=== PATIENT | female | born 1975 | race Caucasian/White ===

== ENCOUNTER 2023-12-10 16:45 | Outpatient (CLI) | payer BC, SELFPAY ==
[2023-12-10 16:41] LABS: Basophils # 0.1 K/mm3 (0-0.2); Basophils % 1.4 % (0.1-2.0); Eosinophils # 0.2 K/mm3 (0.0-0.4); Eosinophils % 2.5 % (0.1-12.0); Hematocrit 46.5 % (37.0-47.0); Hemoglobin 14.9 g/dL (12.2-16.2); Lymphocytes # 2.9 K/mm3 (0.7-4.5); Lymphocytes % 43.9 % (10-50); Mean Corpuscular Volume 99.8 fl (81-99); Monocytes # 0.3 K/mm3 (0.1-1.0); Monocytes % 5.2 % (1.7-9.3); Neutrophils # 3.1 K/mm3 (1.8-7.8); Neutrophils % 47.1 % (37.0-80.0); Platelet Count 298 K/mm3 (142-424); Red Blood Count 4.66 M/mm3 (4.20-5.40); Red Cell Distribution Width 13.7 % (11.5-17.5); White Blood Count 6.5 K/mm3 (4.8-10.8)
[2023-12-10 17:16] LABS: Alanine Aminotransferase 16 U/L (12-78); Albumin Level 4.7 g/dl (3.5-5.0); Albumin/Globulin Ratio 1.7 (1.1-1.8); Alkaline Phosphatase 78 U/L (38-126); Anion Gap 14.1 mEq/L (5-15); Aspartate Amino Transferase 23 U/L (14-36); Bilirubin,Total 0.4 mg/dl (0.2-1.3); Blood Urea Nitrogen 16 mg/dl (7-17); Calcium 9.6 mg/dl (8.4-10.2); Carbon Dioxide 27 mmol/L (22.0-30.0); Chloride 104 mmol/L (98-107); Estimated Glomerular Filt Rate 76 ml/min (>60); GFR (African American) 92 ML/MIN (>60); Globulin 2.7 g/dL (1.3-3.2); Glucose 100 mg/dl (74-100); Potassium 4.1 mmoL/L (3.5-5.1); Sodium 141 mmol/L (136-145); Total Protein,Serum 7.4 g/dl (6.3-8.2)
[2023-12-10 17:22] LABS: C-Reactive Protein 0.5 mg/L (0-4)
[2023-12-10 18:17] LABS: Thyroid Stimulating Hormone 0.73 uIU/mL (0.465-4.68)
[2023-12-10 18:32] LABS: Erythrocyte Sedimentation Rate 3 mm/hr (0-20)
== END 2023-12-10 23:59 | disposition home or self-care (01) ==
LOC: LAB.DROPOF 16:46
PROVIDERS: PCP Family Medicine; Visit Provider Family Medicine
DX: R10.9 Unspecified abdominal pain (principal); L29.9 Pruritus, unspecified
CPT/HCPCS: 80050; 80053; 84443; 85025; 85651; 86140

== ENCOUNTER 2023-12-30 07:57 | Outpatient (CLI) | payer BC, SELFPAY ==
--- NOTE | 2023-12-30 07:58 | US_ITS ---
FINAL REPORT TECHNIQUE: Sonographic images of the abdomen were obtained in all four quadrants. CLINICAL HISTORY: abdominal pain COMPARISON: None FINDINGS: LIVER: Homogeneous. No focal hepatic lesion or intrahepatic biliary dilatation. GALLBLADDER: Prior cholecystectomy. The common duct measures 2 mm. This is within normal limits for age. PANCREAS: Unremarkable. RIGHT KIDNEY: 10.1 cm. No hydronephrosis, mass or stone. LEFT KIDNEY: 10.5 cm. No hydronephrosis, mass or stone. SPLEEN: 7.9 cm. No focal splenic lesion. AORTA/IVC: No abdominal aortic aneurysm. Visualized IVC within normal limits. OTHER: No ascites. IMPRESSION: Unremarkable ultrasound of the abdomen. Reviewed, Interpreted and Dictated by Petty Crawford MD Transcribed by Sammie Nunes Authenticated and [facility]
== END 2023-12-30 23:59 | disposition home or self-care (01) ==
LOC: RAD 07:58
PROVIDERS: PCP Family Medicine; Visit Provider Family Medicine
DX: R10.9 Unspecified abdominal pain (principal)
CPT/HCPCS: 76700

== ENCOUNTER 2024-02-27 10:09 | Outpatient (CLI) | payer BC, SELFPAY ==
--- NOTE | 2024-02-27 10:16 | XR_ITS ---
FINAL REPORT CLINICAL HISTORY: cough FINDINGS: Two views of the chest were obtained. The heart size and pulmonary vascularity are within normal limits. The mediastinum is normal. No acute pulmonary abnormality is identified. There is no pneumothorax. The bony thorax is intact. IMPRESSION: No active cardiopulmonary disease. Reviewed, Interpreted and Dictated by Per Aviles III, MD Transcribed by Carol Melo Authenticated and [facility]
== END 2024-02-27 23:59 | disposition home or self-care (01) ==
LOC: RAD 10:10
PROVIDERS: PCP Family Medicine; Visit Provider Family Medicine
DX: U07.1 COVID-19 (principal)
CPT/HCPCS: 71046

== ENCOUNTER 2024-08-16 11:10 | Outpatient (CLI) | payer BC, SELFPAY ==
[2024-08-16 19:50] LABS: Basophils # 0.1 K/mm3 (0-0.2); Basophils % 1.1 % (0.1-2.0); Eosinophils # 0.1 K/mm3 (0.0-0.4); Eosinophils % 1.7 % (0.1-12.0); Hematocrit 45.3 % (37.0-47.0); Hemoglobin 14.7 g/dL (12.2-16.2); Lymphocytes # 2.2 K/mm3 (0.7-4.5); Lymphocytes % 34.1 % (10-50); Mean Corpuscular HGB Conc 32.5 g/dL (31.8-35.4); Mean Corpuscular Hemoglobin 31.6 pg (27.0-31.2); Mean Corpuscular Volume 97.4 fl (81-99); Mean Platelet Volume 10.5 fl (7.4-10.4); Monocytes # 0.4 K/mm3 (0.1-1.0); Monocytes % 6.7 % (1.7-9.3); Neutrophils # 3.6 K/mm3 (1.8-7.8); Neutrophils % 56.2 % (37.0-80.0); Platelet Count 312 K/mm3 (142-424); Red Blood Count 4.65 M/mm3 (4.20-5.40); Red Cell Distribution Width 13.1 % (11.5-17.5); White Blood Count 6.5 K/mm3 (4.8-10.8)
[2024-08-16 21:39] LABS: Alanine Aminotransferase 17 U/L (12-78); Albumin Level 4.9 g/dl (3.5-5.0); Albumin/Globulin Ratio 2.2 (1.1-1.8); Alkaline Phosphatase 79 U/L (38-126); Anion Gap 14.6 mEq/L (5-15); Aspartate Amino Transferase 23 U/L (14-36); Bilirubin,Total 0.3 mg/dl (0.2-1.3); Blood Urea Nitrogen 17 mg/dl (7-17); Calcium 9.6 mg/dl (8.4-10.2); Carbon Dioxide 22 mmol/L (22.0-30.0); Chloride 107 mmol/L (98-107); Estimated Glomerular Filt Rate 106 ml/min (>60); GFR (African American) 128 ML/MIN (>60); Globulin 2.2 g/dL (1.3-3.2); Glucose 88 mg/dl (74-100); Potassium 4.6 mmoL/L (3.5-5.1); Sodium 139 mmol/L (136-145); Total Protein,Serum 7.1 g/dl (6.3-8.2)
[2024-08-16 21:59] LABS: Free Thyroxine Index 2.1 ug/dL (5.93-13.13); T4 (Thyroxine) 7.4 ug/dl (5.53-11.0); Triiodothryronine (T3) Uptake 29 % (23.5-40.5)
[2024-08-16 22:13] LABS: Thyroid Stimulating Hormone 0.61 uIU/mL (0.465-4.68); Thyroid Stimulating Hormone 0.68 uIU/mL (0.465-4.68)
[2024-08-16 22:19] LABS: HIV Combo NEGATIVE (Negative)
[2024-08-16 22:26] LABS: Hepatitis C Ab Qual. W/ RFX REACTIVE (Negative)
== END 2024-08-16 23:59 | disposition home or self-care (01) ==
LOC: LAB.DROPOF 08-18 15:56
PROVIDERS: PCP Nurse Practitioner Family; Visit Provider Nurse Practitioner Family
DX: J31.2 Chronic pharyngitis (principal); R53.83 Other fatigue; N93.9 Abnormal uterine and vaginal bleeding, unspecified; Z11.59 Encounter for screening for other viral diseases; Z11.4 Encounter for screening for human immunodeficiency virus [HIV]
CPT/HCPCS: 80053; 84436; 84443; 84479; 85025; 86803; 87389; 87522

== ENCOUNTER 2024-09-26 09:04 | Emergency (ER) | payer BC, SELFPAY ==
[2024-09-26 09:09] VITALS: BP 117/63; PULSE 80; O2SAT 98
[2024-09-26 09:11] VITALS: BP 117/63; PULSE 68; RESP 17; TEMP 36.6; O2SAT 99; BMI 18.9
[2024-09-26 09:15] VITALS: BP 108/53; PULSE 68; O2SAT 97
--- NOTE | 2024-09-26 09:21 | PC.NURSE ---
dr maria at bedside
--- NOTE | 2024-09-26 09:29 | CT_ITS ---
PROCEDURE INFORMATION: Exam: CT Pelvis Without Contrast, Skeleton Exam date and time: 09/26/2024 9:36 AM Age: 49 years old Clinical indication: Pelvic pain; Additional info: Point tenderness over sacrum/coccyx x 1 yr, no known trauma TECHNIQUE: Imaging protocol: Computed tomography of the pelvis without contrast. Exam focused on the skeleton. Radiation optimization: All CT scans at this facility use at least one of these dose optimization techniques: automated exposure control; mA and/or kV adjustment per patient size (includes targeted exams where dose is matched to clinical indication); or iterative reconstruction. COMPARISON: US ABDOMEN COMPLETE 12/30/2023 8:10 AM FINDINGS: Gallbladder and biliary ducts: Status post cholecystectomy. Intestine: Mild fibrofatty appearance of the sigmoid colon and rectum suggestive of prior inflammation. Appendix: Normal appendix. Urinary bladder: Decompressed bladder with mild wall thickening. Bones/joints: The distal S5 vertebra has a curved morphology which may represent normal patient's baseline, versus posttraumatic (image 87 series 1002). No displaced fracture is identified. Recommend MRI to assess for marrow edema or overlying soft tissue inflammatory change. Moderate inflammatory change in the lower lumbar spine posterior disc bulge at L4-L5. Soft tissues: No soft tissue abnormality. IMPRESSION: The distal S5 vertebra has a curved morphology which may represent normal patient's baseline, versus posttraumatic. No displaced fracture is identified. Recommend MRI to assess for marrow edema or subtle overlying soft tissue inflammatory change.
--- NOTE | 2024-09-26 09:30 | HMH.EDGENADL ---
Discharge Plan Disposition Patient Disposition: Home, Self-Care Prescriptions Prescriptions: No Action progesterone micronized 200 mg capsule 200 mg PO HS Patient Comments: TAKE 1 CAPSULE BY MOUTH NIGHTLY fluticasone propionate [Flonase Allergy Relief] 50 mcg/actuation spray,suspension 1 spray intranasal Q12H Rx Instructions: administer into each nostril All Day Allergy (cetirizine) 10 mg capsule 10 mg PO DAILY PRN (Reason: Allergy Symptoms) famotidine 20 mg tablet 20 mg PO DAILY Qty: 30 2RF estradiol [Arabella] 0.05 mg/24 hr patch semiweekly See Rx Instructions .ROUTE .COMPLEX Patient Comments: APPLY 1 PATCH TOPICALLY TWICE A WEEK Rx Instructions: APPLY 1 PATCH TOPICALLY TWICE A WEEK Referrals Follow up/Referrals: Provider,Referral, [Referring] - See instructions Activity Restrictions/Add. Instructions Additional Instructions/Restrictions: Follow-up with primary care doctor. Should your symptoms persist, an MRI of your pelvis may be helpful to identify any subtle changes in your bone marrow or inflammation in the surrounding soft tissue. Recommend a donut pillow and taking Tylenol/ibuprofen for pain as needed. Clinical Impressions Clinical Impression: Sacral pain Print Language Print Language: Italian Discharge ED Provider: Jordy Licona General Adult HPI General Chief complaint: PAIN Stated complaint: Lower back pain Time Seen by Provider: 09/26/24 09:14 Mode of Arrival: Ambulatory Source of Information: Patient Description of Symptoms (Recalled from ER Triage Doc. by RN): pt to the ED with tailbone pain without injury. pt reports the pain as been intermitten over the last year but recently has become more painful and frequent over the last month or so. History of Present Illness HPI narrative: This is a 49-year-old female currently being worked up for abnormal uterine bleeding presenting with sacral pain. States that she has had intermittent pain over her coccyx/sacrum over the last year however is becoming more frequent and painful. States that it is worse with sitting down. She rides motorcycles but has not ridden at all this year. Also very active and does not have a sitting job. Denies any swelling or redness over the area. Denies any other symptoms. Related Data Home Medications ?Medication ?Instructions ?Recorded ?Confirmed cetirizine 10 mg capsule (All Day 10 mg PO DAILY PRN Allergy Symptoms 08/30/24 09/26/24 Allergy (cetirizine)) fluticasone propionate 50 1 spray intranasal Q12H 08/30/24 09/26/24 mcg/actuation nasal spray,suspension (Flonase Allergy Relief) progesterone micronized 200 mg 200 mg PO HS 08/30/24 09/26/24 capsule estradiol 0.05 mg/24 hr semiweekly See Rx Instructions .Route .COMPLEX 09/26/24 09/26/24 transdermal patch (Arabella) Previous Rx's ?Medication ?Instructions ?Recorded famotidine 20 mg tablet 20 mg PO DAILY #30 tabs 08/30/24 Allergies Allergy/AdvReac Type Severity Reaction Status Date / Time No Known Allergies Allergy Verified 08/30/24 14:11 [facility] Disclaimer: The information contained in this section may have been updated after the patient was seen, as this information can be updated by other users. Medical History (Updated 09/26/24 @ 10:05 by Jordy Licona MD) Acid reflux Hx of hepatitis C Hernia, hiatal No active medical problems Surgical History Tubal ligation status History of cholecystectomy Social History Smoking Status: Current every day smoker tobacco type: cigarettes alcohol intake: never current occupational status: employed Travel in the last 8 weeks: None Have you lived/traveled outside US in past 30 days?: No Contact w/someone who lives/traveled outside US past 30 days?: No Exposure to someone with infectious disease in past 14 days?: No Do you have a fever (greater than 100.4 F or 38 C)?: No Have you tested positive for COVID-19: No Exposed to someone with COVID-19 in past 14 days?: No Do you have a sore throat?: No Do you have a cough?: No Do you have any weakness?: No Do you have any diarrhea?: No Are you experiencing any unusual bleeding?: No Do you have any muscle aches/pain?: Yes Do you have any abdominal pain?: No Are you experiencing loss of taste or smell?: No Other Medical History Have you received the Pneumonia Vaccine: No ROS Obtained: Yes All systems reviewed & no additional complaints except as documented Physical Exam General General appearance: alert and in no apparent distress Eye Eye exam: Present normal appearance, PERRL and EOMI Respiratory Respiratory exam: Present normal lung sounds bilaterally; Absent respiratory distress Cardiovascular Cardiovascular exam: Present regular rate and normal rhythm Abdominal Exam Abdominal exam: Present soft; Absent distention, tenderness, guarding or rebound Extremities Exam Extremities exam: Present normal inspection Back Exam Back exam: Present other (Point tenderness over the lower sacrum/coccyx. No fluctuance or swelling. No skin changes.) Neurological Exam Neurological exam: Present alert and oriented X3 Skin Skin exam: Present warm and dry Medical Decision Making Medical Records Medical records reviewed: Yes I reviewed the patient's medical records. Screening: Per USPSTF and CDC recommendations, given the prevalence of disease in our region, it is our hospital?s policy to screen for HIV and viral Hepatitis for all patients aged 18 and over and those with ongoing risk factors. Sj Inquiry Pt receiving controlled substance: No Vital Signs: 09/26/24 09:09 09/26/24 09:11 09/26/24 09:15 Temperature 97.9 F Temperature Source Oral Pulse Rate 80 68 Pulse Rate [Left Radial] 68 Respiratory Rate 17 Blood Pressure 117/63 108/53 L Blood Pressure [Right Arm] 117/63 Blood Pressure Mean 81 Blood Pressure Mean [Right Arm] 81 Blood Pressure Source [Right Arm] Automatic Cuff Blood Pressure Position [Right Arm] Sitting 02 Sat by Pulse Oximetry 98 99 97 Oxygen Delivery Method Room Air Room Air Room Air 09/26/24 09:33 Temperature Temperature Source Pulse Rate 66 Pulse Rate [Left Radial] Respiratory Rate Blood Pressure Blood Pressure [Right Arm] Blood Pressure Mean Blood Pressure Mean [Right Arm] Blood Pressure Source [Right Arm] Blood Pressure Position [Right Arm] 02 Sat by Pulse Oximetry 98 Oxygen Delivery Method Orders (Tests/Meds): ORDERS Category Date Time Status CT bony pelvis Stat Cat Scan 09/26/24 09:29 Completed POCUS Point of Care (ER Only) Stat Exams 09/26/24 09:25 Ordered Medical Decision Narrative: In summary, this 49-year-old female currently being worked up for abnormal uterine bleeding however otherwise healthy presents to the emergency department today with sacral pain for the last year. On initial evaluation patient is afebrile, hemodynamically stable, nontoxic-appearing. Differential diagnosis includes but is not limited to pilonidal cyst, abscess, osteoarthritis, pressure injury, osteolytic lesion. Based on these concerns, I ordered CT bony pelvis and performed [id number] ultrasound. CT imaging personally interpreted demonstrates no acute osseous or soft tissue pathology. Radiologist recommended following up with MRI if symptoms persist to identify any subtle inflammatory soft tissue changes or bone marrow edema. This was discussed with the patient and she was to follow-up with PCP to order an outpatient MRI. Recommended using a donut pillow and Tylenol/ibuprofen as needed for pain. Patient was in agreement with this plan and ultimately discharged in stable condition. Procedures Miscellaneous Procedure Procedure Performed: Soft tissue ultrasound Indication: Sacral tenderness Identified structures: Sacrum and soft tissue structures surrounding Location: Sacrum Findings: Normal, no obvious fluid collection Impression: No acute findings Images were saved to the permanent archive. The study was technically adequate. Soft tissue CPT codes Neck: 76619-70 Upper extremity: 97248-07 Axilla: 08513-02 Chest wall: 81569-99 Breast: 91556-39 (complete), 80316-97-[RT/LT] (limited) Upper back: 06604-23 Abdominal wall: 56764-42 Pelvic wall: 03899-76 Lower extremity: 47145-38 Other soft tissue: 82501-71 This study was performed by me, and I personally interpreted all images/videos. Based on my clinical judgment, these images were [adequate/inadequate] and [did/did not] necessitate further imaging. Critical Care Critical Care Time Critical Care Time: No
[2024-09-26 09:33] VITALS: PULSE 66; O2SAT 98
[2024-09-26 10:16] VITALS: BP 106/41; PULSE 70; RESP 16; TEMP 36.7; O2SAT 99
== END 2024-09-26 10:18 | disposition home or self-care (01) ==
PROVIDERS: Emergency Provider Student in an Organized Health Care Education/Training Program; PCP Family Medicine
DX: M53.3 Sacrococcygeal disorders, not elsewhere classified (principal); M54.50 Low back pain, unspecified
CPT/HCPCS: 99284; 72192

== ENCOUNTER 2024-10-04 08:56 | Outpatient (CLI) | payer BC, SELFPAY ==
--- NOTE | 2024-10-04 09:01 | XR_ITS ---
FINAL REPORT CLINICAL HISTORY: sacral pain, nki, radiates into Lt hip COMPARISON: CT of the pelvis 09/26/2024 FINDINGS: SACRUM AND COCCYX: AP and lateral views of the sacrum and coccyx were obtained. There is no prior exam for comparison. There is no acute fracture or other acute osseous abnormality. The SI joints are symmetric bilaterally. The sacrococcygeal articulation appears within normal limits. The appearance of the S5 segment of the sacrum is unchanged from the CT, and favor that this is related to either a remote injury of the distal sacrum or is normal for this patient. No acute soft tissue abnormality is present. IMPRESSION: The appearance of the S5 segment of the sacrum is unchanged from the prior CT, and favor this this is related either to a remote injury of the distal sacrum or is normal for this patient. Reviewed, Interpreted and Dictated by Petty Crawford MD Transcribed by Katerine Holman Authenticated and . [facility]
--- NOTE | 2024-10-04 09:01 | XR_ITS ---
FINAL REPORT CLINICAL HISTORY: sacral pain, nki, radiates into Lt hip COMPARISON: None FINDINGS: AP, lateral, and oblique views of the lumbar spine were obtained. There is no acute fracture or acute malalignment. Vertebral body height is preserved. There is mild degenerative change at the L2-3 and L3-4 levels, with very minimal disc space narrowing. No acute paraspinal abnormality is identified. IMPRESSION: Mild degenerative change as described without acute bony abnormality. Reviewed, Interpreted and Dictated by Petty Crawford MD Transcribed by Katerine Holman Authenticated and . [facility]
== END 2024-10-04 23:59 | disposition home or self-care (01) ==
LOC: RAD 08:57
PROVIDERS: PCP Nurse Practitioner Family; Visit Provider Nurse Practitioner Family
DX: M53.3 Sacrococcygeal disorders, not elsewhere classified (principal)
CPT/HCPCS: 72110; 72220

== ENCOUNTER 2024-11-11 10:08 | Outpatient (CLI) | payer BC, SELFPAY ==
[2024-11-11 17:15] LABS: Basophils # 0.1 K/mm3 (0-0.2); Basophils % 1.1 % (0.1-2.0); Eosinophils # 0.3 Kmm3 (0.0-0.4); Eosinophils % 4.7 % (0.1-12.0); Hematocrit 39.9 % (37.0-47.0); Immature Granulocytes # 0.02 10^3uL; Immature Granulocytes % 0.3 %; Lymphocytes # 2.6 K/mm3 (0.7-4.5); Lymphocytes % 40.7 % (10-50); Mean Corpuscular HGB Conc 32.6 g/dL (31.8-35.4); Mean Corpuscular Hemoglobin 31.4 pg (27.0-31.2); Mean Corpuscular Volume 96.4 fl (81-99); Mean Platelet Volume 10.3 fl (7.4-10.4); Monocytes # 0.3 K/mm3 (0.1-1.0); Monocytes % 5.4 % (1.7-9.3); Neutrophils % 47.8 % (37.0-80.0); Nucleated Red Blood Cells # 0 10^3/uL; Nucleated Red Blood Cells % 0 %; Platelet Count 293 K/mm3 (142-424); Red Blood Count 4.14 M/mm3 (4.20-5.40); Red Cell Distribution Width 12.7 % (11.5-17.5); Red Cell Distribution Width-SD 45.3 fL; White Blood Count 6.3 K/mm3 (4.8-10.8)
[2024-11-11 18:25] LABS: Albumin Level 4.8 g/dl (3.5-5.0); Chloride 104 mmol/L (98-107)
[2024-11-11 18:26] LABS: Potassium 4.5 mmoL/L (3.5-5.1); Sodium 139 mmol/L (136-145)
[2024-11-11 18:28] LABS: Alanine Aminotransferase 19 U/L (12-78); Alkaline Phosphatase 66 U/L (38-126); Anion Gap 14.5 mEq/L (5-15); Aspartate Amino Transferase 32 U/L (14-36); Bilirubin,Total 0.5 mg/dl (0.2-1.3); Blood Urea Nitrogen 16 mg/dl (7-17); Carbon Dioxide 25 mmol/L (22.0-30.0); Estimated Glomerular Filt Rate 131 ml/min (>60); GFR (African American) 158 ML/MIN (>60); Iron 110 ug/dL (37-170)
[2024-11-11 18:29] LABS: Albumin/Globulin Ratio 1.8 (1.1-1.8); Calcium 9.1 mg/dl (8.4-10.2); Globulin 2.6 g/dL (1.3-3.2); Glucose 139 mg/dl (74-100); Total Protein,Serum 7.4 g/dl (6.3-8.2)
[2024-11-11 18:49] LABS: Total Iron Binding Capacity 290 ug/dL (265-497)
[2024-11-11 19:39] LABS: 25-OH Vitamin D, Total 56.8 ng/mL (30-100)
[2024-11-11 20:12] LABS: Vitamin B12 393 pg/mL (239-931)
== END 2024-11-11 23:59 | disposition home or self-care (01) ==
LOC: LAB.DROPOF 11-12 12:36
PROVIDERS: PCP Nurse Practitioner Family; Visit Provider Nurse Practitioner Family
DX: L60.9 Nail disorder, unspecified (principal); L60.3 Nail dystrophy
CPT/HCPCS: 80053; 82306; 82607; 83540; 83550; 85025

== ENCOUNTER 2024-11-17 10:24 | Outpatient (CLI) | payer BC, SELFPAY ==
[2024-11-17 12:17] LABS: Ferritin 70.9 ng/ml (6.24-137)
== END 2024-11-17 23:59 | disposition home or self-care (01) ==
LOC: LAB 10:26
PROVIDERS: PCP Nurse Practitioner Family; Visit Provider Internal Medicine Medical Oncology
DX: D50.9 Iron deficiency anemia, unspecified (principal)
CPT/HCPCS: 82728

== ENCOUNTER 2024-11-22 13:57 | Outpatient (CLI) | payer BC, SELFPAY ==
--- OUTSIDE RECORDS SUMMARY | 2024-09-28 09:11 | XMS_ITS | Encounter Summary ---
Author Organization Healthcare Address [address] [place] [address] Care Team Providers Care Mobile Battery Technician Name Role Phone Rob De La Garza APRN Primary Care Provider Encounter Details Date Type Department Care Team (Latest Contact Info) Description 09/28/2024 9:11 AM EDT - 09/28/2024 11:59 PM EDT Hospital Encounter [facility] Rad[facility] Ultrasound [address] [place] [address] Post-menopausal bleeding Discharge Disposition: Home or Self Care Social History Tobacco Use Types Packs/Day Years Used Date Smoking Tobacco: Every Day Cigarettes 1.5 30 Smokeless Tobacco: Never Alcohol Use Standard Drinks/Week Comments Not Currently 0 (1 standard drink = 0.6 oz pure alcohol) Alcoholic Drinks/day: History of alcohol use Comments No Sex and Gender Information Value Date Recorded Sex Assigned at Not on file Legal Sex Female 8:20 PM EDT Gender Identity Not on file Sexual Orientation Not on file documented as of this encounter Medications at Time of Discharge cetirizine (ZyrTEC) 10 MG tablet Take 1 tablet (10 mg) by mouth 1 (one) time each day. cyclobenzaprine (Flexeril) 10 MG tabletIndication s:Tail bone pain Take 1 tablet by mouth in the morning and 1 tablet in the evening and 1 tablet before bedtime. 30 tablet 1 09/08/2024 diclofenac (Voltaren) 1 % topical gelIndications:P ain of left hip Place on the skin in the morning and before bedtime. Apply as directed to L HIP NEEDED FOR PAIN. 350 g 09/28/2024 estradiol (Estrace) 0.1 MG/GM vaginal creamIndications :Pelvic and perineal pain Insert 1 g into the vagina nightly. At bedtime for 2 weeks, then at bedtime twice a week. 42 g 3 08/24/2024 estradiol (Estrace) 2 MG tabletIndication s:Healthcare maintenance,Ami menopause TAKE 1 TABLET BY MOUTH ONCE DAILY DIRECTED 30 tablet 05/08/2022 estradiol (Vivelle-DOT) 0.05 MG/24HRIndicatio ns:Post-menopaus al bleeding Place 1 patch on the skin 2 (two) times a week over 96 hours. 24 patch 3 08/26/2024 famotidine (Pepcid) 20 MG tablet Take by mouth. fluticasone (Flonase) 50 MCG/ACT nasal spray Administer 2 sprays into affected nostril(s) 1 (one) time each day. pantoprazole (Protonix) 40 MG EC tablet Take 40 mg by mouth 2 (two) times a day. 09/23/2021 progesterone (Prometrium) 200 MG capsuleIndicatio ns:Perimenopause Take 1 capsule by mouth once daily 30 capsule 05/08/2022 progesterone (Prometrium) 200 MG capsuleIndicatio ns:Post-menopaus al bleeding Take 1 capsule (200 mg) by mouth nightly. 90 capsule 3 08/24/2024 diclofenac (Voltaren) 75 MG EC tabletIndication s:Pain of left hip Take 1 tablet by mouth in the morning and 1 tablet before bedtime. Do not crush, chew, or split. 60 tablet 09/28/2024 documented as of this encounter Plan of Treatment Upcoming Encounters Date Type Department Care Team (Late st Contact Info) Description 08/30/2025 10:00 AM EDT Office Visit [facility] [address], [address] [place] [address] Smita Lemons, SUPERVISOR INTERNATIONAL RESERVATIONS, CNM [address] [place] [address] documented as of this encounter Procedures Procedure Name Priority Date/Time Associated Diagnosis Comments US PELVIS TRANSVAGINAL Routine 09/28/2024 9:23 AM EDT Post-menopausal bleeding documented in this encounter Results * US Pelvis Transvaginal (09/28/2024 9:23 AM EDT) Anatomical Region Laterality Modality Pelvis Ultrasound 09/28/2024 9:20 AM EDT Impressions 09/29/2024 4:47 PM EDT The OB Ultrasound you requested has been resulted. Please navigate to the Imaging tab in [employer] for review. This message has been generated by the interface. Narrative Procedure Note Jared Lima MD - 09/29/2024 IMPRESSION: The OB Ultrasound you requested has been resulted. Please navigate to theImaging tab in [employer] for review. This message has been generated by theinterface. us Smita Lemons APRN, CNM IMG US PROCEDURES Fin al Result documented in this encounter Visit Diagnoses Diagnosis Post-menopausal bleeding Postmenopausal bleeding documented in this encounter Additional Health Concerns Assessment Noted Time A Body Mass Index follow-up plan has been documented for the patient 09/28/2024 2:57 PM EDT documented as of this encounter Care Teams Mobile Battery Technician Relationship Specialty Start Date End Date Rob De La Garza APRN PCP - General 10/27/20 documented as of this encounter
--- OUTSIDE RECORDS SUMMARY | 2024-09-28 09:45 | XMS_ITS | Encounter Summary ---
Author Organization Healthcare Address [address] [place] [address] Care Team Providers Care Dark Room Attendant Name Role Phone Rob De La Garza APRN Primary Care Provider Encounter Details Date Type Department Care Team (Late st Contact Info) Description 09/28/2024 9:45 AM EDT Office Visit [facility] [address], [address] [place] [address] Smita Lemons APRN, CNM [address] [place] [address] Pain of left hip (Primary Dx); Post-menopausal bleeding; Hormone replacement therapy Social History Tobacco Use Types Packs/Day Years [...] on file documented as of this encounter Last Filed Vital Signs Vital Sign Reading Time Taken Comments Blood Pressure 107/62 09/28/2024 9:32 AM EDT Pulse 65 09/28/2024 9:32 AM EDT Temperature 36.6 C (97.9 F) 09/28/2024 9:32 AM EDT Respiratory Rate 16 09/28/2024 9:32 AM EDT Oxygen Saturation 99% 09/28/2024 9: 32 AM EDT Inhaled Oxygen Concentration - - Weight 49.8 kg (109 lb 12.6 oz) 09/28/2024 9:32 AM EDT Height - - Body Mass Index 19.45 08/24/2024 10:16 AM EDT documented in this encounter Miscellaneous Notes * Progress Notes - Mike Valencia - 09/28/2024 9:45 AM EDT Ov/US GynUS(09/28/2024) Prelim: Uterus and endometrium measure appropriately. Ovaries are seen, no free fluid noted, follow up prn, awaiting md impression. Q/c: -concerned about the Estrogen. Does not smoke cigarettes, but smokes ecig. Is this ok together. -Does not like the patch. Takes really hot baths, and would rather take the pill. -Er visit on Friday [facility] . Extreme tail bone pain. Recommended to follow up with Mri * Progress Notes - Smita Lemons, ARPIT, SOLITARIO - 09/28/2024 9:45 AM EDT Gynecology Progress Note Subjective Ov/US GynUS(09/28/2024) Prelim: Uterus and endometrium measure appropriately. Ovaries are seen, no free fluid noted, follow up prn, awaiting md impression. Q/c: -concerned about the Estrogen. Does not smoke cigarettes, but smokes ecig. Is this ok together. -Does not like the patch. Takes really hot baths, and would rather take the pill. -Er visit on Friday [facility] . Extreme tail bone pain. Recommended to follow up with Mri 1. Post menopausal bleeding -unable to get endometrial biopsy done due to cx stenosis -todays u/s wnl-- endometrium 2.8mm 2. Hrt -not smoking, but is vaping -doing vivelle patch-- she is worried about her love of hot bath and tanning bed-- heat w patch -also worried re nicotine and ert--as she says she vapes--- -discussed decision re quaity of life, as not without risk re dvt or breast ca 3. Hip pain -went to the er-- wishes mri-- [place] had nl xray and ct--he told her she needed mri -needs ortho referral -consider diclofenac topical and oral--rx sent-- Review of Systems Objective Visit Vitals BP 107/62 Pulse 65 Temp 36.6 ??C (97.9 ??F) Resp 16 Physical Exam Constitutional: Appearance: Normal appearance. She is normal weight. Comments: thin Genitourinary: Vulva normal. Genitourinary Comments: See u/s-- Breasts: Right: Normal. Left: Normal. HENT: Head: Normocephalic. Eyes: Pupils: Pupils are equal, round, and reactive to light. Cardiovascular: Rate and Rhythm: Normal rate and regular rhythm. Pulmonary: Effort: Pulmonary effort is normal. Breath sounds: Normal breath sounds. Abdominal: Palpations: Abdomen is soft. Musculoskeletal: General: Normal range of motion. Cervical back: Normal range of motion. Neurological: General: No focal deficit present. Mental Status: She is alert and oriented to person, place, and time. Skin: General: Skin is warm and dry. Psychiatric: Mood and Affect: Mood normal. Behavior: Behavior normal. Vitals reviewed. Labs: Imaging: Assessment/Plan Assessment & Plan Pain of left hip Orders: ??? diclofenac (Voltaren) 75 MG EC tablet; Take 1 tablet by mouth in the morning and 1 tablet before bedtime. Do not crush, chew, or split. ??? diclofenac (Voltaren) 1 % topical gel; Place on the skin in the morning and before bedtime. Apply as directed to L HIP NEEDED FOR PAIN. Post-menopausal bleeding Orders: ??? US Pelvis Transvaginal; Future Hormone replacement therapy documented in this encounter Plan of Treatment Upcoming Encounters Date Type Department Care Team (Late st Contact Info) Description 08/30/2025 10:00 AM EDT Office Visit [facility] [address], [address] [place] [address] Smita Lemons APRN, CNM [address] [place] [address] Scheduled Orders Name Type Priority Associated Diagnoses Orde r Schedule US Pelvis Transvaginal Imaging Routine Post-menopausal bleeding Expected: 09/28/2024 (Approximate), Expires: 03/30/2026 documented as of this encounter Visit Diagnoses Diagnosis Pain of left hip- Primary Post-menopausal bleeding Postmenopausal bleeding Hormone replacement therapy documented in this encounter Additional Health Concerns Assessment Noted Time A Body Mass Index follow-up plan has been documented for the patient 09/28/2024 2:57 PM EDT documented as of this encounter Care Teams Dark Room Attendant Relationship Specialty Start Date End Date Rob De La Garza APRN PCP - General 10/27/20 documented as of this encounter
--- NOTE | 2024-11-22 14:00 | MR_ITS ---
FINAL REPORT CLINICAL HISTORY: Sacral pain and lbp FINDINGS: Multiplanar MR imaging of the lumbar spine was performed without and with contrast. On the sagittal T2-weighted images, abnormal decreased signal is seen at L4-5. The vertebral alignment is normal. There is no evidence of fracture. The conus is seen at approximately the L1 level and has an unremarkable appearance. L1-2: No significant canal stenosis or neuroforaminal narrowing is seen. L2-3: No significant canal stenosis or neuroforaminal narrowing is seen. L3-4: No significant canal stenosis or neuroforaminal narrowing is seen. L4-5: Mild broad-based midline disc protrusion with mild central canal stenosis and mild bilateral neuroforaminal narrowing. L5-S1: No significant canal stenosis or neuroforaminal narrowing is seen. No abnormal contrast enhancement is identified. IMPRESSION: Mild broad-based midline disc protrusion at L4-5 with mild canal stenosis and neuroforaminal narrowing. No abnormal contrast-enhancement. Reviewed, Interpreted and Dictated by Twin Leyva MD Transcribed by Rachel Cheatham Authenticated and [facility]
--- OUTSIDE RECORDS SUMMARY | 2024-11-22 14:00 | XMS_ITS | Encounter Summary ---
Author Organization Healthcare Address [address] [place] [address] Care Team Providers Care Hair Baler Name Role Phone HolliRbo APRN Primary Care Provider Reason for Visit * Reason Comments Med Refill Encounter Details Date Type Department Care Team (Late Contact Info) Description 08/17/2021 Refill [facility] [address], [address] [place] [address] Rose Zamudio APRN, CNM [address] [place] [address] Healthcare maintenance; Perimenopause Social History Tobacco Use Types Packs/Day Years Used Date Smoking Tobacco: Every Day Cigarettes Alcohol Use Standard Drinks/Week Comments Not Currently 0 (1 standard drink = 0.6 oz pure alcohol) Alcoholic Drinks/day: History of alcohol use Comments Unknown Sex and Gender Information Value Date Recorded Sex Assigned at Not on file Legal Sex Female 8:20 PM EDT Gender Identity Not on file Sexual Orientation Not on file documented as of this encounter Plan of Treatment Upcoming Encounters Date Type Department Care Team (Late Contact Info) Description 08/30/2025 10:00 AM EDT Office Visit [facility] [address], [address] [place] [address] Smita Lemons APRN, CNM [address] [place] [address] documented as of this encounter Visit Diagnoses Diagnosis Healthcare maintenance Perimenopause Symptomatic menopausal or female climacteric states documented in this encounter Care Teams Hair Baler Relationship Specialty Start Date End Date Rob De La Garza APRN PCP - General 10/27/20 documented as of this encounter
--- OUTSIDE RECORDS SUMMARY | 2024-11-22 14:01 | XMS_ITS | Data Portability ---
Author Organization [place] - [facility] [place] Address [address] [place] [address] Care Team Providers Care Adoption Manager Name Role Phone UNRULYJIMBO CRESPO Primary Care Provider Assessment No assessment recorded. Plan of Treatment Reminders Order Date Submit Date Provider Last Modified By Organization Details Last Modified Time Details Appointments None recorded. Lab influenza virus A + B + SARS-CoV-2 (COVID19) Ag panel, rapid IA, upper respiratory specimen 2023 024 [facility], [address] [place], [address], 4 12:09:11 CBC w/ diff 2022 023 [facility], [address], [address], [place], [address], 3 16:13:58 CMP, serum or plasma 2022 023 [facility], [address], [address], [place], [address], 3 16:14:00 TSH + free T4, serum 2022 023 [facility], [address], [address], [place], [address], 3 16:14:01 rf (rheumatoid factor) + anti-ccp abs, serum 2022 023 [facility], [address], [address], [place], [address], 3 16:14:03 ESR (erythrocyt e sedimentati on rate), blood 2022 023 [facility], [address], [address], [place], [address], 3 16:14:07 uric acid, serum or plasma 2022 023 [facility], [address], [address], [place], [address], 3 16:14:06 C reactive protein, QN, serum or plasma 2022 023 [facility], [address], [address], [place], [address], 3 16:14:08 MONA (antinuclea r antibodies) screen, serum 2022 023 [facility], [address], [address], [place], [address], 3 16:14:[address] referral 2022 023 [facility], [address], [address], [place], [address], 3 12:12:43 Procedures None recorded. Surgeries None recorded. Imaging XR, hip, unilateral, 2 or 3 view 2021 022 [facility], [address] [place], [address], 2 12:06:23 XR, femur, 2 or more view [address] Centralized Scheduling, [address] [place], [address], 2 12:39:14 Medication Orders Paxlovid 300 mg (150 mg x 2)-100 mg tablets in a dose pack 2023 024 [facility], [address] [place] [address], [address], 4 12:19:54 Wellbutrin SR 100 mg tablet, 12 hr sustained-r elease 2022 023 [facility], [address] [place] [address], [address], 4 11:52:41 baclofen 5 mg tablet 2021 023 [facility], [address] [place] [address], [address], 3 09:16:41 Patient TargetsNo targets recorded. Patient InstructionsNo instructions recorded. Reason for Referral Crew Person Referral for Cassandra coronel in skin lesion Referring Physician: Jimbo Olivas, Family Medicine, Encounter Date: 08/21/2022 Results Created Date Observation Date Name Description Value Unit Range Abnormal Flag Note LastModifiedBy Organization Detail LastModifiedTime 08/22/1908/22/2022 CBC/D /PLT WBC 6.1 x10e3 /uL 3.4-10 .8 Not Available [facility] ([facility]) [address] [place], [address], 08/22/2022 16:13:58 08/22/1908/22/2022 CBC/D /PLT RBC 4.40 x10e6 /uL 3.77-5 .28 Not Available [facility] ([facility]) [address] [place], [address], 08/22/2022 16:13:58 08/22/19 23 08/22/2022 CBC/D /PLT hemoglobin 14.2 g/dL 11.1-1 5.9 Not Available [facility] ([facility]) [address] [place], [address], 08/22/2022 16:13:58 08/22/19 23 08/22/2022 CBC/D /PLT hematocrit 41.5 % 34.0-4 6.6 Not Available [facility] ([facility]) [address] [place], [address], 08/22/2022 16:13:58 08/22/19 23 08/22/2022 CBC/D /PLT MCV 94 fL 79-97 Not Available [facility] ([facility]) [address] [place], [address], 08/22/2022 16:13:58 08/22/19 23 08/22/2022 CBC/D /PLT MCH 32.3 pg 26.6-3 3.0 Not Available [facility] ([facility]) [address] [place], [address], 08/22/2022 16:13:58 08/22/19 23 08/22/2022 CBC/D /PLT MCHC 34.2 g/dL 31.5-3 5.7 Not Available [facility] ([facility]) [address] [place], [address], 08/22/2022 16:13:58 08/22/19 23 08/22/2022 CBC/D /PLT RDW 12.5 % 11.7-1 5.4 Not Available [facility] ([facility]) [address] [place], [address], 08/22/2022 16:13:58 08/22/19 23 08/22/2022 CBC/D /PLT platelets 300 x10e3 /uL 150-45 0 Not Available [facility] ([facility]) [address] [place], [address], 08/22/2022 16:13:58 08/22/19 23 08/22/2022 CBC/D /PLT neutrophils 45 % not estab. Not Available [facility] ([facility]) [address] [facility] [place], [address], 08/22/2022 16:13:58 08/22/19 23 08/22/2022 CBC/D /PLT lymphs 44 % not estab. Not Available [facility] ([facility]) [address] [facility] [place], [address], 08/22/2022 16:13:58 08/22/19 23 08/22/2022 CBC/D /PLT monocytes 7 % not estab. Not Available [facility] ([facility]) [address] [facility] [place], [address], 08/22/2022 16:13:58 08/22/19 23 08/22/2022 CBC/D /PLT eos 3 % not estab. Not Available [facility] ([facility]) [address] [facility], [place], [address], 08/22/2022 16:13:58 08/22/19 23 08/22/2022 CBC/D /PLT basos 1 % not estab. Not Available [facility] ([facility]) [address] [facility], [place], [address], 08/22/2022 16:13:58 08/22/19 23 08/22/2022 CBC/D /PLT immature cells JUNIOR ACCOUNT MANAGER Not Available [facility] ([facility]) [address] [facility], [place], [address], 08/22/2022 16:13:58 08/22/19 23 08/22/2022 CBC/D /PLT neutrophils (absolute) 2.8 x10e3 /uL 1.4-7. 0 Not Available [facility] ([facility]) [address] [place], [address], 08/22/2022 16:13:58 08/22/19 23 08/22/2022 CBC/D /PLT lymphs (absolute) 2.7 x10e3 /uL 0.7-3. 1 Not Available [facility] ([facility]) [address] [facility], [place], [address], 08/22/2022 16:13:58 08/22/19 23 08/22/2022 CBC/D /PLT monocytes(ab solute) 0.4 x10e3 /uL 0.1-0. 9 Not Available [facility] ([facility]) [address] [facility], [place], [address], 08/22/2022 16:13:58 08/22/19 23 08/22/2022 CBC/D /PLT eos (absolute) 0.2 x10e3 /uL 0.0-0. 4 Not Available [facility] ([facility]) [address] [facility], [place], [address], 08/22/2022 16:13:58 08/22/19 23 08/22/2022 CBC/D /PLT baso (absolute) 0.1 x10e3 /uL 0.0-0. 2 Not Available [facility] ([facility]) [address] [facility], [place], [address], 08/22/2022 16:13:58 08/22/19 23 08/22/2022 CBC/D /PLT immature granulocytes 0 % not estab. Not Available [facility] ([facility]) [address] [place], [address], 08/22/2022 16:13:58 08/22/19 23 08/22/2022 CBC/D /PLT immature grans (abs) 0.0 x10e3 /uL 0.0-0. 1 Not Available [facility] ([facility]) [address] [place], [address], 08/22/2022 16:13:58 08/22/19 23 08/22/2022 CBC/D /PLT NRBC JUNIOR ACCOUNT MANAGER Not Available [facility] ([facility]) [address] [place], [address], 08/22/2022 16:13:58 08/22/19 23 08/22/2022 CBC/D /PLT hematology comments: JUNIOR ACCOUNT MANAGER Not Available [facility] ([facility]) [address] [place], [address], 08/22/2022 16:13:58 08/22/19 23 08/22/2022 CMP14 +EGFR glucose 98 mg/dL 70-99 Not Available [facility] ([facility]) [address] [facility] [place], [address], 08/22/2022 16:14:00 08/22/19 23 08/22/2022 CMP14 +EGFR BUN 11 mg/dL 6-24 Not Available [facility] ([facility]) [address] [facility] [place], [address], 08/22/2022 16:14:00 08/22/19 23 08/22/2022 CMP14 +EGFR creatinine 0.69 mg/dL 0.57-1 .00 Not Available [facility] ([facility]) [address] [facility] [place], [address], 08/22/2022 16:14:00 08/22/19 23 08/22/2022 CMP14 +EGFR eGFR 107 mL/mi n/1.7 3 >59 Not Available [facility] ([facility]) [address] [facility] [place], [address], 08/22/2022 16:14:00 08/22/19 23 08/22/2022 CMP14 +EGFR BUN/creatini ne ratio 16 9-23 Not Available [facility] ([facility]) [address] [facility] [place], [address], 08/22/2022 16:14:00 08/22/19 23 08/22/2022 CMP14 +EGFR sodium 142 mmol/ L 134-14 4 Not Available [facility] ([facility]) [address] [facility], [place], [address], 08/22/2022 16:14:00 08/22/19 23 08/22/2022 CMP14 +EGFR potassium 4.5 mmol/ L 3.5-5. 2 Not Available [facility] ([facility]) [address] [place], [address], 08/22/2022 16:14:00 08/22/19 23 08/22/2022 CMP14 +EGFR chloride 105 mmol/ L 96-106 Not Available [facility] ([facility]) [address] [place], [address], 08/22/2022 16:14:00 08/22/19 23 08/22/2022 CMP14 +EGFR carbon dioxide, total 18 mmol/ L 20-29 below low normal Not Available [facility] ([facility]) [address] [place], [address], 08/22/2022 16:14:00 08/22/19 23 08/22/2022 CMP14 +EGFR calcium 9.7 mg/dL 8.7-10 .2 Not Available [facility] ([facility]) [address] [place], [address], 08/22/2022 16:14:00 08/22/19 23 08/22/2022 CMP14 +EGFR protein, total 7.1 g/dL 6.0-8. 5 Not Available [facility] ([facility]) [address] [place], [address], 08/22/2022 16:14:00 08/22/19 23 08/22/2022 CMP14 +EGFR albumin 4.8 g/dL 3.8-4. 8 Not Available [facility] ([facility]) [address] [place], [address], 08/22/2022 16:14:00 08/22/19 23 08/22/2022 CMP14 +EGFR globulin, total 2.3 g/dL 1.5-4. 5 Not Available [facility] ([facility]) [address] [facility] [place], [address], 08/22/2022 16:14:00 08/22/19 23 08/22/2022 CMP14 +EGFR A/G ratio 2.1 1.2-2. 2 Not Available [facility] ([facility]) [address] [facility] [place], [address], 08/22/2022 16:14:00 08/22/19 23 08/22/2022 CMP14 +EGFR bilirubin, total 0.2 mg/dL 0.0-1. 2 Not Available [facility] ([facility]) [address] [facility], [place], [address], 08/22/2022 16:14:00 08/22/19 23 08/22/2022 CMP14 +EGFR alkaline phosphatase 78 IU/L 44-121 Not Available [facility] [address] [facility] [place], [address], 08/22/2022 16:14:00 08/22/19 23 08/22/2022 CMP14 +EGFR AST (SGOT) 13 IU/L 0-40 Not Available [facility] ([facility]) [address] [facility] [place], [address], 08/22/2022 16:14:00 08/22/19 23 08/22/2022 CMP14 +EGFR ALT (SGPT) 9 IU/L 0-32 Not Available [facility] ([facility]) [address] [facility], [place], [address], 08/22/2022 16:14:00 08/22/19 23 08/22/2022 TSH+F REE T4 TSH 0.837 uIU/m L 0.450- 4.500 Not Available [facility] ([facility]) [address] [place], [address], 08/22/2022 16:14:01 08/22/19 23 08/22/2022 TSH+F REE T4 T4,free(dire ct) 1.23 NG/dL 0.82-1 .77 Not Available [facility] ([facility]) [address] [place], [address], 08/22/2022 16:14:01 08/22/19 23 08/22/2022 RHEUM ATOID ARTHR ITIS PROFI LE rheumatoid factor (rf) <10.0 IU/mL <14.0 Not Available [facility] ([facility]) [address] [place], [address], 08/22/2022 16:14:03 08/22/19 23 08/22/2022 RHEUM ATOID ARTHR ITIS PROFI LE anti-ccp Ab, IgG/IgA 2 units 0-19 Negat madison <20 Weak posit madison 20 - 39 Moder ate posit madison 40 - 59 Stron g posit madison >59 Not Available [facility] ([facility]) [address] [facility], [place], [address], 08/22/2022 16:14:03 08/22/19 23 08/22/2022 MONA W/REF TATO MONA direct NEGATI VE negati ve Not Available [facility] ([facility]) [address] [place], [address], 08/22/2022 16:14:04 08/22/19 23 08/22/2022 URIC ACID uric acid 2.9 mg/dL 2.6-6. 2 Thera peuti c targe t for gout patie nts: <6.0 Not Available [facility] ([facility]) [address] [place], [address], 08/22/2022 16:14:06 08/22/19 23 08/22/2022 SEDIM ENTAT ION RATE- WESTE RGREN sedimentatio n rate-westerg dinorah 2 mm/HR 0-32 Not Available [facility]) [address] [facility], [place], [address], 08/22/2022 16:14:07 08/22/19 23 08/22/2022 C-LLOYD CTIVE PROTE IN, QUANT C-reactive protein, quant <1 mg/L 0-10 Not Available [facility] ([facility]) [address] [facility], [place], [address], 08/22/2022 16:14:08 02/25/20 24 02/25/2024 influ emmanuel virus A + B + SARS- CoV-2 (COVI D19) Ag panel , rapid IA, upper respi rator y speci men FLU A negati ve Not Available [address] [place], [address], 02/25/2024 11:54:02 02/25/20 24 02/25/2024 influ emmanuel virus A + B + SARS- CoV-2 (COVI D19) Ag panel , rapid IA, upper respi rator y speci men FLU B negati ve Not Available [facility] [place] [address] [place], [address], 02/25/2024 11:54:02 02/25/20 24 02/25/2024 influ emmanuel virus A + B + SARS- CoV-2 (COVI D19) Ag panel , rapid IA, upper respi rator y speci men SARS COV + SARS OV 2 positi ve Not Available [facility] [place] [address] [place], [address], 02/25/2024 11:54:02 03/21/20 22 03/21/2022 XR, hip, unila teral , 2 or 3 view [facility] [address] [place] [address] Phone: Fax: Name: JADYN PHELAN Exam Date: 022 : [birth year] Age 47 Gender : F Access ion: [id number] Physic david: JIMBO OLIVAS Facili ty: [facility] Facili ty HSV: Outpat ient Exam: HIP LT 2V LEFT HIP CLINIC AL HISTOR Y: Hip pain. FINDIN GS: AP and latera l views show no acute bony abnorm ality. There is mild left hip joint space degene rative change . Soft tissue s are unrema rkable . IMPRES BRYN: No acute bony abnorm ality. Films review ed , interp reted and dictat ed by Dr. Bruna Rubin . Transc ribed by Sivakumar Sam PA-C. Dictat ed By: URVASHI RUBIN Transc ribed By: URVASHI RUBIN Transc ribed On: 12:02 PM Electr onical ly signed by: URVASHI RUBIN Thank you for referr ing JADYN PHELAN ER to [facility] it Hospit al. Legall y authen ticate d by CARYN LANDIN 2021-06 12:02: 12 CC'ed Logic: Orderi ng Provid er: UNRULY CHOI CC Provid er: UNRULY CHOI Attend ing Provid er: UNRULY CHOI Referr ing Provid er: UNRULY CHOI Admitt ing Provid er: UNRULY CHOI [email or web address] [facility] ([facility]iology) [address] [place], [address], 03/21/2022 13:13:33 03/21/20 22 03/21/2022 femur 2V lt [facility] [address] [place] [address] Phone: Fax: Name: JADYN PHELAN ER Exam Date: : [birth year] Age 47 Gender : F Access ion: [id number] Physic david: UNRULYERICKEN Facili ty: [facility] Facili ty HSV: Outpat ient Exam: FEMUR 2V LT LEFT FEMUR HISTOR Y: Leg pain FINDIN GS: Four views show no eviden ce of an acute, displa heraclio fractu re or disloc ation of the visual ized bony alecia ecture . There is mild degene rative change of the hip and knee joint. IMPRES BRYN: No acute bony abnorm ality Films review ed , interp reted and dictat ed by Dr. Bruna Rubin . Transc ribed by Sivakumar Sam PA-C. Dictat ed By: URVASHI RUBIN Transc ribed By: URVASHI RUBIN Transc ribed On: 12:02 PM Electr onical ly signed by: URVASHI RUBIN Thank you [facility] [place] [facility] Legall y authen ticate d by CARYN LANDIN 2021-06 12:02: 33 CC'ed Logic: Orderi ng Provid er: UNRULY CHOI CC Provid er: UNRULY CHOI Attend ing Provid er: UNRULY CHOI Referr ing Provid er: UNRULY CHOI Admitt ing Provid er: UNRULY CHOI [id number] [facility] ([facility]) [address] , [place], [address], 03/21/2022 13:13:15 Result Notes None recorded. Problems Name Problem SNOMED Code Status Onset Date Resolution Date Notes Provider Name and Address Organization Details Recorded Time Menopause Active 2021 Carlie Edward null, [place] - [facility] [place] [facility] [place] 4 11:52:56 Gastroesophage al reflux disease 030170134 Active 2021 Carlie Jacintodini null, [place] [facility] [place] [facility] [place] 4 11:52:54 Seasonal allergy 669797970 Active 2021 Carlie Jacintodini null, [place] - [facility] [place] [facility] [place] 4 11:52:59 Problem Notes None recorded. Procedures Surgical History Date Name Laterality Status Provider Name and Address Organization Details Recorded Time 2021 completed Martha Nolan [place] - [facility] [place] [facility] [place] 3 09:16:15 2021 Date of Last Colonoscopy completed Martha JACKSON - [facility] [place] [facility] [place] 3 09:16:15 2020 Date of Last Pap Smear completed Martha JACKSON - [facility] [place] [facility] [place] 3 09:16:15 Cholecystectomy completed Guillermina JACKSON - [facility] [place] [facility] [place] 2 08:10:49 Tubal Ligation completed Guillermina JACKSON - [facility] & [place] 2 08:11:04 esophagogastroduodenoscopy completed Guillermina JACKSON - [place] - [place] [facility] [place] 2 08:11:15 esophagogastroduodenoscopy completed Guillermina JACKSON - JANES [facility] & [place] 2 08:11:24 colonoscopy completed Guillermina JACKSON - JANES [facility] & [place] 2 08:11:38 colonoscopy completed Guillermina JACKSON - [place] - [place] [facility] [place] 2 08:11:54 Imaging Results None recorded. Procedure Notes None recorded. Medical Equipment None Reported. Allergies No known drug allergies Medications Name Sig Start Date Stop Date Status Note LastModified by Organization Details LastModified Time sucralfate 1 gram tablet TAKE 1 TABLET BY MOUTH BEFORE MEAL(S) AND BEFORE BEDTIME 08/21 completed Not Available Not Available Not Available bupropion HCl SR 100 mg tablet,12 hr sustained-r elease TAKE 1 TABLET BY MOUTH TWICE DAILY 02/24 completed Not Available Not Available Not Available methocarbam ol 750 mg tablet TAKE 1 TABLET BY MOUTH EVERY 6 HOURS FOR 7 DAYS 08/21 completed Not Available Not Available Not Available pantoprazol e 40 mg tablet,shalonda yed release TAKE 1 TABLET BY MOUTH TWICE DAILY 08/21 completed Not Available Not Available Not Available progesteron e micronized 200 mg capsule TAKE 1 CAPSULE BY MOUTH ONCE DAILY 08/21 completed Not Available Not Available Not Available estradiol 2 mg tablet TAKE 1 TABLET BY MOUTH ONCE DAILY DIRECTED 08/21 completed Not Available Not Available Not Available methylpredn isolone 4 mg tablets in a dose pack 02/24 completed Not Available Not Available Not Available esomeprazol e magnesium 20 mg capsule,del ayed release TAKE 1 CAPSULE BY MOUTH ONCE DAILY 08/21 completed Not Available Not Available Not Available hydroxyzine pamoate 25 mg capsule 02/24 completed Not Available Not Available Not Available GaviLyte-G 236 gram-22.74 gram-6.74 gram-5.86 gram oral solution STARTING AT NOON ON DAY PRIOR TO PROCEDURE DRINK 8 OUNCES BY MOUTH EVERY 30 MINUTES UNTIL ALL GONE OR STOOLS ARE CLEAR. MAY ADD FLAVOR PACKET 03/21 completed Not Available Not Available Not Available baclofen 5 mg tablet Take 1 tablet twice a day by oral route for 10 days. 08/21 completed Not Available Not Available Not Available Paxlovid 300 mg (150 mg x 2)-100 mg tablets in a dose pack Take 1 dose pk by oral route. 2023 active Not Available Not Available Not Avai lable Vitals Date Recorded Body height Body weight Body temperature Oxygen saturation Oxygen saturation in Arterial blood by Pulse oximetry Heart rate Systolic blood pressure Diastolic blood pressure Provider Name and Address Organization Details Last Updated DateTime 3 160.02 cm 13637.9 1 g 97 [degF] 98 % 98 % 74 /min 117 mm[Hg] 62 mm[Hg] Martha Nolan [facility] & [place] 3 09:15:52 Date Recorded Body height Body mass index (BMI) Body weight Body temperature Oxygen saturation Oxygen saturation in Arterial blood by Pulse oximetry Heart rate Respiratory rate Systolic blood pressure Diastolic blood pressure Provider Name and Address Organization Details Last Updated DateTime 4 160.02 cm 19.4 kg/m2 50665.0 1 g 98.2 [degF] 94 % 94 % 83 /min 16 /min 109 mm[Hg] 64 mm[Hg] Carlie Hernandezserena [facility] & [place] 4 11:52:01 Date Recorded Body height Body mass index (BMI) Body weight Body temperature Oxygen saturation Oxygen saturation in Arterial blood by Pulse oximetry Heart rate Systolic blood pressure Diastolic blood pressure Provider Name and Address Organization Details Last Updated DateTime 2 160.02 cm 19 kg/m2 11835.1 g 98 [degF] 97 % 97 % 68 /min 104 mm[Hg] 64 mm[Hg] Martha MARRERO [facility] & [place] 10:35:40 Social History Question Answer Notes LastModified by Organizat ion Details LastModified Time Tobacco Smoking Status Current Every Day Smoker Martha bunch, [place] MARRERO [facility] & [place] 03/21/2022 10:36:35 Do You Have An Advance Directive? No Information not available 08/21/2022 Are You Blind Or Do You Have Difficulty Seeing? No Information not available 08/21/2022 What Was The Date Of Your Most Recent Tobacco Screening? 03/18/2022 Information not available 08/21/2022 Are You Passively Exposed To Smoke? No Information not available 08/21/2022 How Much Tobacco Do You Smoke? 1 PPW Information not available 02/25/2024 How Many Years Have You Smoked Tobacco? 30 Information not available 08/21/2022 Sex: Unknown Functional Status Question Answer Note LastModified by Organizat ion Details LastModified Time Do you use any illicit or recreational drugs? No Information not available 08/21/2022 What is your level of alcohol consumption? None Information not available 03/21/2022 Do you or have you ever used smokeless tobacco? Never used smokeless tobacco Information not available 08/21/2022 What is your exercise level? Moderate Information not available 08/21/2022 Mental Status Question Answer Note LastModified by Organization D etails LastModified Time Do you feel stressed (tense, restless, nervous, or anxious, or unable to sleep at night)? [id number] Information not available 02/25/2024 Family History Relationship Description Onset Age of this Age Resolved Age Notes LastModified by Organization Details LastModified Time Mother Malignant neoplasm of liver deceas ed [email or web address] Not available 03/21/2022 08:09:44 Sister Alcoholism deceas ed [email or web address] Not available 03/21/2022 08:10:09 Notes:Father Medical History Condition Response Allergies/Hayfever Y Liver Disease Y Substance Abuse Y Reflux/GERD Y GI Problems Y Gynecological History Statement/Question Response Abnormal Pap N 02/14/2022 Date of Last Colonoscopy 07/27/2021 Date of LMP 06/04/2021 Sexually Active? Y Menses Monthly N Date of Last Pap Smear 02/15/2021 Current Control Method Tubal Ligat ion Age at Menarche 12 Obstetrics History GPAL:G 0 P 0 0 0 0 Past Encounters Encounter ID Performer Location Encounter Start Date Encounter Closed Date Diagnosis/Indication Diagnosis SNOMED-CT Code Diagnosis ICD10 Code Diagnosis Note [id number] Jimbo Olivas APRN [address] [address] 03/21/2022 10:20:58 03/21/2022 11:14:48 Pain in left lower limb 561030288 M79.605 xrays orderedwil l order baclofenmo nitor for worsening symptomsic e therapygo to the ER with any loss of sensation, tingling/n umbness, severe weakness [id number] Jimbo Olivas APRN [address] [address] 08/21/2022 09:03:45 08/21/2022 16:53:20 Pain of multiple joints 48544724 M25.50 blood drawn in the right ac by Martha Nolan CMA, patient tolerated well.OA vs RA vs autoimmune Nicotine dependence 5629 4008 F17.200 start wellbutrin start to decrease daily cigarette use Change in skin lesion 39 8877438 L98.9 sending referral to derm [id number] Mohinder Vargas MD [facility] [address] [facility] [place] [address] 02/25/2024 11:36:13 02/25/2024 12:10:07 Respiratory tract congestion and cough 266058300 R05.1 COVID-19 923051186 U07.1 patient tested positive for COVID-19 infection. She has been advised to isolate at home, Tylenol or Motrin as needed for symptomati c relief, drink plenty of fluids, Health Concerns Section Related Observation LastModified by Organization Detai ls LastModified Time None Recorded Concern Status LastModified by Organization Details LastModified Time None Recorded Advance Directives Directive N: Payers Insurance Date Sequence Insurance Name Policy Number Policy Gong Covered Member ID Gong Member ID Guarantor Name 08/20/2022 1 [employer] (MEDICAID REPLACEMENT - HMO) [id number] Guillermina Phelan [id number] Guillermina Phelan 08/20/2022 1 [place] [employer] [place] - FFS/TRADITION AL Guillermina Phelan [id number] Guillermina Phelan 02/25/2024 1 PASSPORT BY [facility] (MEDICAID REPLACEMENT - HMO) [id number] Guillermina Phelan [id number] Guillermina Phelan 02/25/2024 1 [employer] [id number] Guillermina Phelan [id number] Guillermina Phelan Notes Date Note Type Note Provider Name and Address Organization Details Recorded Time 03/21/2022 text/html Musculoskeletal PainReported bypatient.Location:pa in radiating to the legs left; left hip Quality:sharp;dull Severity:no driving impairment;worsening Duration:present for 1-6 months Timing:date of onset:; 2 months ago Context:overuse Alleviating Factors:rest; changing position; medications: ibuprofen Aggravating factors:movement/posi tioning; bending over; twisting Associated Symptoms:no fever; no weak limbs; no tingling; no numbness of the legs/feet; no incontinence ADLs Affected:walking; sweeping; mopping Jimbo Olivas APRN [address], [place], [address] 03/22/2022 14:08:21 08/21/2022 text/html 47 y/o female th at presents to the clinic for multiple joint pain. Reports worst pain is in BL hips, BL wrists and ankles. Has been present for several months. 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 No known RA or autoimmune in family members. Has a left posterior back lesion, itching and painful to touch.Pt is also smoking 1 ppd and wanting to quit. Requesting possible wellbutrin to aid in tobacco cessation. She has stopped hormone replacement. Jimbo Olivas APRN [address] [facility], [place], [address], [place] [facility] [place] 08/21/2022 12:45:09 02/25/2024 text/html patient presents today with symptoms that include body aches, fever, chills, sore throat, and fatigue. Patient has had symptoms for 2 days. Mohinder Vargas MD [address] [facility], [place], [address], [place] [facility] [place] 02/25/2024 12:20:06 OBGyn Episode No OBEpisode recorded.
--- OUTSIDE RECORDS SUMMARY | 2024-11-22 14:01 | XMS_ITS | Referral Summary ---
Author Organization [facility] [employer] Address [address] [place], [place] [id number] Care Team Providers Care Lead Blender Name Role Phone Unavailable Primary Care Provider Unavailabl e Social History Tobacco Use Types Packs/Day Years Used Date Smoking Tobacco: Never Assessed Comments Unknown Sex and Gender Information Value Date Recorded Sex Assigned at Female 12/11/2021 8:11 PM CDT Legal Sex Female 8:11 PM CDT Gender Identity Female 12/11/2021 8:11 PM CDT Sexual Orientation Not on file Plan of Treatment Not on file
--- OUTSIDE RECORDS SUMMARY | 2024-11-22 14:01 | XMS_ITS | Encounter Summary ---
Author Organization [facility] [place] Address [address] [place] [address] Care Team Providers Care Parts Counter Sales Person Name Role Phone Rob De La Garza Nia MUNSON Primary Care Provider Encounter Details Date Type Department Care Team (Late st Contact Info) Description 08/25/2024 Results Follow-Up [facility] [address], [address] [place] [address] Smita Lemons APRN, CNAad [address] [place] [address] Social History Tobacco Use Types Packs/Day Years [...] 10:00 AM EDT Office Visit [facility] [address], [address] [place] [address] Smita Lemons APRN, CNM [address] [place] [address] documented as of this encounter Visit Diagnoses Not on filedocumented in this encounter Additional Health Concerns Assessment Noted Time A Body Mass Index follow-up plan has been documented for the patient 08/24/2024 1:45 PM EDT documented as of this encounter Care Teams Parts Counter Sales Person Relationship Specialty Start Date End Date Rob De La Garza APRN PCP - General 10/27/20 documented as of this encounter
--- OUTSIDE RECORDS SUMMARY | 2024-11-22 14:01 | XMS_ITS | Clinical Summary ---
Author Organization [facility] [employer] Address [address] [place], [place] [id number] Care Team Providers Care Hydraulic Spinner Name Role Phone Unavailable Primary Care Provider [...]
--- OUTSIDE RECORDS SUMMARY | 2024-11-22 14:01 | XMS_ITS | Clinical Summary ---
Author Organization Healthcare Address [address] [place] [address] Care Team Providers Care Paralegals Name Role Phone Rob De La Garza APRN Primary Care Provider Allergies No known active allergies Medications pantoprazole (Protonix) 40 MG EC tablet Take 40 mg by mouth 2 (two) times a day. 09/24/19 22 Active estradiol (Estrace) 2 MG tabletIndicati ons:Healthcare maintenance,Pe rimenopause TAKE 1 TABLET BY MOUTH ONCE DAILY DIRECTED 30 tablet 05/08/20 22 Active progesterone (Prometrium) 200 MG capsuleIndicat ions:Perimenop ause Take 1 capsule by mouth once daily 30 capsule 05/08/20 22 Active cetirizine (ZyrTEC) 10 MG tablet Take 1 tablet (10 mg) by mouth 1 (one) time each day. Active fluticasone (Flonase) 50 MCG/ACT nasal spray Administer 2 sprays into affected nostril(s) 1 (one) time each day. Active famotidine (Pepcid) 20 MG tablet Take by mouth. Activ e estradiol (Vivelle-DOT) 0.05 MG/24HRIndicat ions:Post-mac pausal bleeding Place 1 patch on the skin 2 (two) times a week over 96 hours. 24 patch 3 08/27/19 25 Active progesterone (Prometrium) 200 MG capsuleIndicat ions:Post-mac pausal bleeding Take 1 capsule (200 mg) by mouth nightly. 90 capsule 3 08/25/19 25 Active estradiol (Estrace) 0.1 MG/GM vaginal creamIndicatio ns:Pelvic and perineal pain Insert 1 g into the vagina nightly. At bedtime for 2 weeks, then at bedtime twice a week. 42 g 3 08/25/19 25 Active cyclobenzaprin e (Flexeril) 10 MG tabletIndicati ons:Tail bone pain Take 1 tablet by mouth in the morning and 1 tablet in the evening and 1 tablet before bedtime. 30 tablet 1 09/09/19 25 Active diclofenac (Voltaren) 1 % topical gelIndications :Pain of left hip Place on the skin in the morning and before bedtime. Apply as directed to L HIP NEEDED FOR PAIN. 350 g 09/29/19 25 Active diclofenac (Voltaren) 75 MG EC tabletIndicati ons:Pain of left hip TAKE 1 TABLET BY MOUTH IN THE MORNING AND 1 TABLET AT BEDTIME DO NOT CRUSH, CHEW, OR SPLIT 60 tablet 10/27/19 25 Active diclofenac (Voltaren) 75 MG EC tabletIndicati ons:Pain of left hip Take 1 tablet by mouth in the morning and 1 tablet before bedtime. Do not crush, chew, or split. 60 tablet 09/29/19 25 025 Discontinued Active Problems Problem Noted Date Diagnosed Date Tobacco use current 02/20/2021 Overview (03/18/2022): Regulatory Update March 2022 Assessment & Plan (02/20/2021 5:58 PM EDT): Smoking cessation counseling provided Not ready to quit, encouraged decreased use Health maintenance examination 02/20/2021 Encounters Date Type Department Care Team Description 10/26/2024 Refill [facility] [address], [address] [place] [address] Smita Lemons APRN, SOLITARIO Pain of left hip 09/28/2024 9:45 AM EDT Office Visit [facility] [address], [address] [place] [address] Smita Lemons APRN, SOLITARIO Pain of left hip (Primary Dx); Post-menopausal bleeding; Hormone replacement therapy 09/28/2024 9:11 AM EDT - 09/28/2024 11:59 PM EDT Hospital Encounter [facility] [address] [place] [address] Post-menopausal bleeding Discharge Disposition: Home or Self Care 09/28/2024 Travel 09/08/2024 Orders Only [facility] [address], [address] [place] [address] Smita Lemons APRN, SOLITARIO Tail bone pain (Primary Dx) 09/08/2024 Telephone [facility] [address], [address] [place] [address] Thais Chacko APRN, SOLITARIO 08/25/2024 Results Follow-Up [facility] [address], [address] [place] [address] Smita Lemons APRN, SOLITARIO 08/24/2024 10:00 AM EDT Office Visit [facility] [address], [address] [place] [address] Smita Lemons APRN, SOLITARIO Annual physical exam (Primary Dx); Pelvic and perineal pain; Post-menopausal bleeding; Perimenopause 08/24/2024 Travel from Last 3 Months Immunizations Immunization Administration Dates Next Due Hep A, Adult 02/16/2019 Family History Medical History Relation Name Comments Breast cancer Maternal Grandmother Cardiac Devices Pacemaker Present Mother Liver cancer Mother bile duct cancer Mother Breast cancer Mother's Sister Relation Name Status Comments Maternal Grandmother Mother Mother's Sister Social History Tobacco Use Types Packs/Day Years Used Date Smoking Tobacco: Every Day Cigarettes 1.5 30 Smokeless Tobacco: Never Tobacco Cessation:Ready to Q uit: Not Asked; Counseling Given: Not Answered Alcohol Use Standard Drinks/Week Comments Not Currently 0 (1 standard drink = 0.6 oz pure alcohol) Alcoholic Drinks/day: History of alcohol use Comments No Sex and Gender Information Value Date Recorded Sex Assigned at Not on file Legal Sex Female 8:20 PM EDT Gender Identity Not on file Sexual Orientation Not on file Last Filed Vital Signs Vital Sign Reading Time Taken Comments Blood Pressure 107/62 09/28/2024 9:32 AM EDT Pulse 65 09/28/2024 9:32 AM EDT Temperature 36.6 C (97.9 F) 09/28/2024 9:32 AM EDT Respiratory Rate 16 09/28/2024 9:32 AM EDT Oxygen Saturation 99% 09/28/2024 9:32 AM EDT Inhaled Oxygen Concentration - - Weight 49.8 kg (109 lb 12.6 oz) 09/28/2024 9:32 AM EDT Height 160 cm (5' 3 ) 08/24/2024 10:16 AM EDT Body Mass Index 19.45 08/24/2024 10:16 AM EDT Plan of Treatment Upcoming Encounters Date Type Department Care Team (Late st Contact Info) Description 08/30/2025 10:00 AM EDT Office Visit [facility] [address], [address] [place] [address] Smita Lemons, BOBBIN LOOSE END FINDER, CNM [address] [place] [address] Health Maintenance Due Date Last Done Comments [facility]-Depression Screening 1974 [facility]-/Child/Adol SDOH Screenings 1974 [facility]- SDOH Screenings 02/02/1992 [facility]-Adult SDOH Screenings 02/02/1992 [facility]-Hepatitis B Vaccines (1 of 3 - 19+ 3-dose series) 1993 [facility]-Pneumococcal Vaccine: 50+ Years (2 of 2 - PCV) 04/14/2018 04/14/2017 CT Colonography 2019 Colonoscopy 2019 FIT-DNA 2019 FIT 2019 FOBT 2019 Sigmoidoscopy 2019 [facility]-Colorectal Cancer Screening 2019 [facility]-Breast Cancer Screening 02/02/202401/14, 01/28/2022, 01/25/2021, Additional history exists [facility]-Lung Cancer Screening 02/02/2024 [facility]-Zoster Vaccines (1 of 2) 02/02/2024 [id number] Vaccine ( season) 2024 04/08/2021, 09/17/2020, 08/27/2020 [facility]-Pap Smear 02/21/2024 02/20/2021, 08/2019, 02/16/2019, Additional history exists [facility]-Influenza Vaccine (Season Ended) 2025 06/20/2023, 04/14/2017, 05/10/2016 [facility]-DTaP,Tdap,and Td Vaccines (2 - Td or Tdap) 04/28/2027 04/28/2017 [facility]-Cervical Cancer Screening 08/24/2029 [facility]-HPV/Cotest 08/24/2029 08/24/2024, 12/2020, 02/17/2020, Additional history exists [facility]-HIV Screening Completed 11/08/2014 [facility]-Hepatitis A Vaccines Aged Out 02/16/2019 No longer eligible based on patient's age to complete this topic [facility]-Hepatitis C Screening Completed 2019, 02/17/2020, 02/17/2020 [facility]-Diabetes: Hemoglobin A1C Discontinued 08/24/2024, 02/20/2021, 02/17/2020 HPV Vaccines Aged Out No longer eligi ble based on patient's age to complete this topic [facility]-HIB Vaccines Aged Out No longer e ligible based on patient's age to complete this topic [facility]-IPV Vaccines Aged Out No longer e ligible based on patient's age to complete this topic [facility]-Rotavirus Vaccines Aged Out No lo nger eligible based on patient's age to complete this topic Procedures Procedure Name Priority Date/Time Associated Diagnosis Comments US PELVIS TRANSVAGINAL Routine 9:23 AM EDT Post-menopausal bleeding HEMOGLOBIN A1C Routine 08/24/2024 11:22 AM EDT Annual physical exam COMPREHENSIVE METABOLIC PANEL, PLASMA Routine 08/24/2024 11:22 AM EDT Annual physical exam VITAMIN B12, SERUM Routine 08/24/2024 11 :22 AM EDT Annual physical exam VITAMIN D 25 HYDROXY Routine 08/24/2024 11:22 AM EDT Annual physical exam CBC W/O DIFFERENTIAL Routine 08/24/2024 11:22 AM EDT Annual physical exam FOLLICLE STIMULATING HORMONE, SERUM Routine 08/24/2024 11:22 AM EDT Post-menopausal bleeding LUTEINIZING HORMONE, SERUM Routine 08/24/2024 11:22 AM EDT Post-menopausal bleeding ESTRADIOL, ADULT PREMENOPAUSAL, FEMALE Routine 08/24/2024 11:22 AM EDT Post-menopausal bleeding PROGESTERONE III Routine 08/24/2024 11:2 2 AM EDT Pelvic and perineal pain Post-menopausal bleeding REFERRED THINPREP PAP AND HPV (SO) Routine 08/24/2024 11:22 AM EDT Annual physical exam POCT URINALYSIS DIPSTICK Routine 08/24/2024 10:58 AM EDT Pelvic and perineal pain POCT , URINE Routine 08/24/2024 10:58 AM EDT Post-menopausal bleeding ENDOMETRIAL BIOPSY Routine 08/24/2024 10 :00 AM EDT Post-menopausal bleeding PAP TEST - CYTOLOGY Routine 02/20/2021 2 :27 PM EDT Healthcare maintenance HEPATITIS C ANTIBODY W/REFLEX TO HCV QUANT PCR Routine 02/17/2020 10:19 AM EDT HIV 1/2 ANTIBODY/ANTIGEN SCREEN WITH REFLEX TO HIV I/II DIFFERENTIATION Routine 11/08/2014 4:53 PM EDT from Last 3 Months or Most Recently Relevant to Health Maintenance Results * US Pelvis Transvaginal (09/28/2024 9:23 AM EDT) Anatomical Region Laterality Modality Pelvis Ultrasound 09/28/2024 9:20 AM EDT Impressions 09/29/2024 4:47 PM EDT The OB Ultrasound you requested has been resulted. Please navigate to the Imaging tab in [employer] for review. This message has been generated by the interface. Narrative Procedure Note Jared Lima MD - 09/29/2024 IMPRESSION: The OB Ultrasound you requested has been resulted. Please navigate to theImaging tab in [employer] for review. This message has been generated by [email or web address]. us Smita Lemons APRN, CNM IMG US PROCEDURES Fin al Result * Referred ThinPrep Pap and HPV (SO) (08/24/2024 11:22 AM EDT) Pap, Source Cx/Vaginal 09/02/2024 5:55 PM EDT [facility]ER Referred ThinPrep Pap and HPV See Note 09/02/2024 5:55 PM EDT [facility] PAP, THINPREP Normal 09/02/2024 5:55 PM EDT [facility] High Risk HPV Normal 09/02/2024 5:55 PM EDT [facility] Swab Cervix uteri structure / Unknown Non-blood Collection / Unknown 08/24/2024 11:22 AM EDT 08/24/2024 7:10 PM EDT Narrative [facility] - 09/02/2024 5:55 PM EDT Authorized individuals can access the [facility] Enhanced Report with an [facility] Connect account using the following link. Your local lab can assist you in obtaining the patient report if you don't have a Connect account. [email or web address] Performed By: [facility] [address] [place] [id number] [employer] Fin[employer] Supervisor: Swapnil Leon MD, PhD CLIA Number: [id number] SPECIMEN PART A. Cervical, Endocervical, Vaginal, ThinPrep Pap (Blow Mold Operator) CYTOLOGY HX Date of Last Menstrual Period: N FINAL DIAGNOSIS INTERPRETATION: Negative for Intraepithelial Lesion or Malignancy. SPECIMEN ADEQUACY:Satisfactory for evaluation. Endocervical/transformation zone component is absent/insufficient. Electronically Signed Out : Janelle Mckeon Performed by: [facility] [address] [place] [address] [place] [address] Riddhi Collado MD, HR-HPV: Negative Test performed by the FDA-approved Convercent (Gen-Probe) APTIMA HPV test, which detects HPV genotypes: 16, 18, 31, 33, 35, 39, 45, 51, 52, 56, 58, 59, 66, and 68. This assay has been cleared for the specimen types listed below. Other specimen types have not been validated for this assay. -Clinician-collected ThinPrep Pap specimens. Performed by: [facility] [address] [place] [address] [place] [address] Riddhi Collado MD, Smita Lemons APRN, SOLITARIO LAB REF LAB BLOOD AND FLUID ORD Final Result [facility] [employer]OLORES) [address] [place] [id number] * Vitamin D 25 Hydroxy (08/24/2024 11:22 AM EDT) Vitamin D 25 Hydroxy 44.9 20.0 - 80.0 ng/mL 08/24/2024 10:43 PM EDT [facility] Blood Venous blood specimen / Unknown Venipuncture / Unknown 08/24/2024 11:22 AM EDT 08/24/2024 7:11 PM EDT Narrative [facility] - 08/24/2024 10:43 PM EDT Testing performed on [place] [employer]ater, standardized against NIST SRM 2972. When testing samples from patients whose predominant form of vitamin D is vitamin D2, such as patients receiving vitamin D2 supplementation, results that are subtherapeutic should be confirmed with another method, such as LC-MS/MS, before being used for patient management. Vitamin D, 25-Hydroxy reference range, age 18 years and up: Deficiency: <12 ng/mL Insufficiency: 12 to 19 ng/mL Sufficiency: 20 to 80 ng/mL Possible toxicity: >100 ng/mL Smita Lemons APRN, SOLITARIO LAB BLOOD ORDERABLES Final Result [facility] [address] [place] [address] * Progesterone III (08/24/2024 11:22 AM EDT) Progesterone III 0.211 Reference Range not established ng/mL 08/24/2024 7:36 PM EDT [facility] Blood Venous blood specimen / Unknown Venipuncture / Unknown 08/24/2024 11:22 AM EDT 08/24/2024 7:09 PM EDT Narrative [facility] - 08/24/2024 7:36 PM EDT Menstrual Cycle Phase Reference Intervals: Females, 18 Y and up (ng/mL) Follicular <= 0.33 Ovulation <= 2.35 Luteal 0.5-21 Post-Menopausal <0.2 reference Intervals (ng/mL): 1st Trimester 11 - 45 2nd Trimester 25 - 84 3rd Trimester 58 - 214 Smita Lemons APRN, SOLITARIO LAB BLOOD ORDERABLES Final Result [facility] [address] [place] [address] * ESTRADIOL, ADULT PREMENOPAUSAL, FEMALE (08/24/2024 11:22 AM EDT) Estradiol <25 pg/mL 08/24/2024 7:3 6 PM EDT [facility] Blood Venous blood specimen / Unknown Venipuncture / Unknown 08/24/2024 11:22 AM EDT 08/24/2024 7:09 PM EDT Narrative [facility] - 08/24/2024 7:36 PM EDT Females >17 Y (pg/mL): Follicular Phase 26 -233 Ovulatory Peak Phase 60 - 600 Luteal Phase 30 - 305 Post-Menopausal <138 Smita Daysi Lemons BOBBIN LOOSE END FINDER, CNM LAB BLOOD ORDERABLES Final Result [facility] [address] [place] [address] * (ABNORMAL) CBC W/O Differential (08/24/2024 11:22 AM EDT) WBC Count 8.33 3.70 - 10.30 10*3/uL LAB HEMATOLOGY METHOD 08/24/2024 1:32 PM EDT [facility] RBC Count 4.63 3.90 - 5.20 10*6/uL LAB HEMATOLOGY METHOD 08/24/2024 1:32 PM EDT [facility] HGB 15.0 11.2 - 15.7 g/dL LAB HEMATOLOGY METHOD 08/24/2024 1:32 PM EDT [facility] HCT 44.2 34.0 - 45.0 % LAB HEMATOLOGY METHOD 08/24/2024 1:32 PM EDT [facility] Platelet Count 304 155 - 369 10*3/uL LAB HEMATOLOGY METHOD 08/24/2024 1:32 PM EDT [facility] MCV 96 79 - 98 fL LAB HEMATOLOGY METHOD 08/24/2024 1:32 PM EDT [facility] MCH 32.4(H) 26.0 - 32.0 pg LAB HEMATOLOGY METHOD 08/24/2024 1:32 PM EDT [facility] MCHC 33.9 30.7 - 35.5 g/dL LAB HEMATOLOGY METHOD 08/24/2024 1:32 PM EDT [facility] RDW 12.7 11.5 - 14.5 % LAB HEMATOLOGY METHOD 08/24/2024 1:32 PM EDT [facility] MPV 10.4 8.8 - 12.5 fL LAB HEMATOLOGY METHOD 08/24/2024 1:32 PM EDT [facility] nRBC 0.0 <=0.0 per 100 WBCs LAB HEMATOLOGY METHOD 08/24/2024 1:32 PM EDT [facility] Blood Venous blood specimen / Unknown Venipuncture / Unknown 08/24/2024 11:22 AM EDT 08/24/2024 1:08 PM EDT us Smita Lemons APRN, CNM LAB BLOOD ORDERABLES Final Result Performing Organization Address City/[facility]/ZIP Co de Phone Number [facility] [address] [place] [address] * Hemoglobin A1c (08/24/2024 11:22 AM EDT) Hemoglobin A1c 5.5 <5.7 % 08/24/2024 1:51 PM EDT [facility] Blood Venous blood specimen / Unknown Venipuncture / Unknown 08/24/2024 11:22 AM EDT 08/24/2024 1:08 PM EDT Narrative [facility] - 08/24/2024 1:51 PM EDT HA1C Interpretive Data: Diagnosis of Diabetes: Diabetic > or = 6.5% Pre-diabetic 5.7 to 6.4% Non-diabetic < or = 5.6% Glycemic Targets for Type I and Type II Diabetics: Non- Adults <7.0% Adults <6.0% Children and Adolescents <7.5% Source: [place] [employer]. Standards of medical care in diabetes,2017. Diabetes Care.2017:40 (suppl 1):S1-S135. HbA1c assay performed by an ion-exchange chromatography method that is certified traceable to the DCCT. Smita Lemons APRN, SOLITARIO LAB BLOOD ORDERABLES Final Result Performing Organization Address City/[facility] Co de Phone Number [facility] [address] [place] [address] * Luteinizing Hormone, Serum (08/24/2024 11:22 AM EDT) Luteinizing Hormone 28.7 mIU/mL 08/24/2024 10:29 PM EDT [facility] Blood Venous blood specimen / Unknown Venipuncture / Unknown 08/24/2024 11:22 AM EDT 08/24/2024 7:09 PM EDT Narrative [facility] - 08/24/2024 10:29 PM EDT Female Reference Ranges: Zack Stage 1: < 9.4 mIU/mL Zack Stage 2: < 16.1 mIU/mL Zack Stage 3: < 23.1 mIU/mL Zack Stage 4-5: < 19.2 mIU/mL Adult Female >17 years: Follicular: 2.4 - 12.6 mIU/mL Midcycle: 14.0 - 95.6 mIU/mL Luteal: 1.0 - 11.5 mIU/mL Postmenopause: 7.7 - 58.5 mIU/mL Smita Lemons APRN, CNM LAB BLOOD ORDERABLES Final Result [facility] [address] [place] [address] * Follicle Stimulating Hormone, Serum (08/24/2024 11:22 AM EDT) FSH 62.1 mIU/mL 08/24/2024 10:[address] [facility] Blood Venous blood specimen / Unknown Venipuncture / Unknown 08/24/2024 11:22 AM EDT 08/24/2024 7:10 PM EDT Narrative [facility] - 08/24/2024 10:33 PM EDT [facility] Female Reference Ranges: Zack Stage 1: 0.6 - 8.4 mIU/mL Zack Stage 2: 0.6 - 8.9 mIU/mL Zack Stage 3: 0.5 - 8.9 mIU/mL Zack Stage 4-5: 0.7 - 9.3 mIU/mL Adult Female >17 years: Follicular: 3.5 - 12.5 mIU/mL Midcycle: 4.7 - 21.5 mIU/mL Luteal: 1.7 - 7.7 mIU/mL Postmenopause: 25.8 - 134.8 mIU/mL : low to undetectable Smita Lemons APRN, CNM LAB BLOOD ORDERABLES Final Result Performing Organization Address City/[facility]/ZIP Co de Phone Number [facility] [address] [place] [address] * Vitamin B12, Serum (08/24/2024 11:22 AM EDT) Vitamin B12, Serum 421 210 - 1,033 pg/mL 08/24/2024 8:05 PM EDT [facility] Blood Venous blood specimen / Unknown Venipuncture / Unknown 08/24/2024 11:22 AM EDT 08/24/2024 7:10 PM EDT Smita Lemons APRN, CNM LAB BLOOD ORDERABLES Final Result Performing Organization Address City/[facility]/ZIP Co de Phone Number [facility] [address] [place] [address] * (ABNORMAL) Comprehensive Metabolic Panel, Plasma (08/24/2024 11:22 AM EDT) Glucose, Plasma 76 74 - 99 mg/dL 08/24/2024 7:36 PM EDT [facility] BUN, Plasma 12 7 - 21 mg/dL 08/24/2024 7:36 PM EDT [facility] Creatinine, Plasma 0.71 0.60 - 1.10 mg/dL 08/24/2024 7:36 PM EDT [facility] BUN/Creatinine Ratio 17 08/24/2024 7:36 PM EDT [facility] Sodium, Plasma 140 136 - 145 mmol/L 08/24/2024 7:36 PM EDT [facility] Potassium, Plasma 4.2 3.6 - 4.9 mmol/L 08/24/2024 7:36 PM EDT [facility] Chloride, Plasma 106 97 - 107 mmol/L 08/24/2024 7:36 PM EDT [facility] CO2, Plasma 21(L) 22 - 29 mmol/L 08/24/2024 7:36 PM EDT [facility] Anion Gap 13 6 - 16 mmol/L 08/24/2024 7:36 PM EDT [facility] Total Calcium, Plasma 9.5 8.9 - 10.2 mg/dL 08/24/2024 7:36 PM EDT [facility] Total Protein 7.5 6.3 - 7.9 g/dL 08/24/2024 7:36 PM EDT [facility] Albumin, Plasma 4.7 3.5 - 5.2 g/dL 08/24/2024 7:36 PM EDT [facility] AST, Plasma 21 10 - 35 U/L 08/24/2024 7:36 PM EDT [facility] ALT, Plasma 10 10 - 35 U/L 08/24/2024 7:36 PM EDT [facility] Alkaline Phosphatase, Plasma 86 35 - 104 U/L 08/24/2024 7:36 PM EDT [facility] Total Bilirubin, Plasma 0.2 0.2 - 1.1 mg/dL 08/24/2024 7:36 PM EDT [facility] eGFRcr 103.7 mL/min/1.7 3m*2 08/24/2024 7:36 PM EDT [facility] Comment:Reported eGFRcr in m L/min/1.73m2 is based the CKD-EPI 2020 equation that does not use a race coefficient. Blood Venous blood specimen / Unknown Venipuncture / Unknown 08/24/2024 11:22 AM EDT 08/24/2024 7:11 PM EDT Smita Lemons APRN, CNM LAB BLOOD ORDERABLES Final Result [facility] [address] [place] [address] * POCT Urine (08/24/2024 10:58 AM EDT) Urine - Point of Care Negative - women after 7 weeks gestation and dilute urine (specific gravity <1.010) may have false negative results. Plasma HCG testing is recommended. Test performed at Point of Care. Negative - women after 7 weeks gestation and dilute urine (specific gravity <1.010) may have false negative results. Plasma HCG testing is recommended. Test performed at Point of Care. INTERNAL QC OK, PREG URINE Yes KIT LOT NUMBER, PREG URINE [id number] KIT EXPIRATION DATE, PREG URINE 07/16/2025 Urine Urine specimen obtained by clean catch procedure / Unknown 08/24/2024 10:58 AM EDT Result [facility] Smita Lemons APRN, CNM POINT OF CARE TEST EN TER/EDIT ORDERABLES Final Result * Urine dip (08/24/2024 10:58 AM EDT) POCT Urine Color Dark Yellow POCT Urine Clarity Clear POCT Glucose Urine Negative Negative mg/dL POCT Bilirubin, Urine Negative Negative POCT Ketones, Urine Negative Negative mg/dL POCT Specific [place], Urine >=1.030 POCT Blood, Urine Negative Negative POCT pH, Urine 6.0 5.0 to 8.0 POCT Protein, Urine Negative Negative mg/dL POCT Urobilinogen, Urine 0.2 0.2, 1 E.U./dL POCT Nitrite, Urine Negative Negative POCT Leukocyte Esterase, Urine Negative Negative Test Strip Lot Number [id number] Test Strip Lot Expiration 01/13/2025 Urine Urine specimen obtained by clean catch procedure / Unknown 08/24/2024 10:58 AM EDT Smita Lemons APRN, CNM POINT OF CARE TEST EN TER/EDIT ORDERABLES Final Result * ENDOMETRIAL BIOPSY (08/24/2024 10:00 AM EDT) Narrative Smita Lemons APRN, CNM - 08/24/2024 10:00 AM EDT Smita Lemons APRN, CNM 08/24/2024 1:45 PM Endometrial biopsy Performed by: Smita Lemons APRN, CNM Authorized by: Smita Lemons APRN, CNM Consent: Consent obtained: Verbal and written Consent given by: Patient Procedural risks discussed: Bleeding, failure rate and infection Patient questions answered: yes Patient agrees, verbalizes understanding, and wants to proceed: yes Indication: Indications: Post-menopausal bleeding Chronicity of post-menopausal bleeding: New Progression of post-menopausal bleeding: Unable to specify Procedure: A bivalve speculum was placed in the vagina: yes Cervix cleaned and prepped: yes Patient tolerated procedure well with no complications: no Unable to perform due to: cervical stenosis Findings: Uterus size: Non-gravid Cervix: stenotic Adnexa: normal Comments: Procedure comments: Unable to complete-- will sched pelvic ultrasound Smita Lemons APRN, CNM IN CLINIC/BEDSIDE ORD ERABLES Final Result * Pap Test (02/20/2021 2:27 PM EDT) Case Report Cytology Case: [id number] Authorizing Provider: Rose Zamudio CNM Collected: 02/20/2021 1427 Ordering Location: [facility] Received: 02/21/2021 1005 First Screen: SELAM Blas Specimen: ThinPrep Pap Test, Liquid-Based Cervical/Vaginal, CERVICAL/VAGINAL 02/26/2021 4:13 PM EDT [facility] Interpretation NEGATIVE FOR INTRAEPITHELIAL LESION OR MALIGNANCY 02/26/2021 4:13 PM EDT [facility] at 1613 EDT Specimen Adequacy Satisfactory for evaluation; endocervical/greene sformation zone component present. Slide scanned and imaged by [employer] [facility] with manual review of all selected olivera. 02/26/2021 4:13 PM EDT [facility] Cervical cytology is a screening test primarily for squamous cancers and precursors and has associated false negative and positive results. New technologies such as liquid based sampling may decrease but will not eliminate all false negative results. Regular screening and follow-up of unexplained clinical signs and symptoms are recommended to minimize false negative results. Please see the ASCCP website (www.asccp.org)fo r followup recommendations. If HPV testing was requested, correlation with the results is suggested (please call Microbiology at [phone] for results). 02/26/2021 4:13 PM EDT [facility] Menstrual Status Post- 021 4:13 PM EDT [facility] Contraceptive History Not Applicable 02/26/2021 4:13 PM EDT [facility] Last Menstrual Period 02/20/2021 02/26/2021 4:13 PM EDT [facility] Comment:Unknown Screening Type Routine Screen 2020 4:13 PM EDT [facility] High Risk? No 02/26/2021 4:13 PM EDT [facility] HPV Testing Requested? Request HPV Testing Regardless of Pap Test Findings 02/26/2021 4:13 PM EDT [facility] Previous Cancer History No 02/26/2021 4:13 PM EDT [facility] Swab Vaginal and cervical cytologic material / Unknown 02/20/2021 2:27 PM EDT 02/21/2021 10:05 AM EDT Rose Zamudio APRN, [facility] CYTOLOGY ORDERAB LES Final Result Performing Organization Address City/[facility]/ZIP Co de Phone Number [facility] [address] [place] [phone] * Hepatitis C Antibody (02/17/2020 10:19 AM EDT) Hepatitis C Antibody POSITIVE This specimen is being sent for confirmation by PCR. Reference Range: Negative [facility] 02/17/2020 10:1 9 AM EDT 02/17/2020 11:52 AM EDT Thais hCacko APRN, [facility] BLOOD ORDERABLES F inal Result [facility] * HIV 1 & 2 Antibody/Antigen Screen (11/08/2014 4:53 PM EDT) HIV 1 Result NONREACTIVE Screening for HIV 1 and 2 antibodies is NONREACTIVE. No confirmatory testing is required. [facility] 11/08/2014 4:53 PM EDT 11/08/2014 5:45 PM EDT us Historical Provider LAB BLOOD ORDERABLES Latanya shelton Result CORY from Last 3 Months or Most Recently Relevant to Health Maintenance Insurance [facility] / [facility] Care Teams Paralegals Relationship Specialty Start Date End Date Rob De La Garza APRN PCP - General 10/27/20
--- OUTSIDE RECORDS SUMMARY | 2024-11-22 14:01 | XMS_ITS | Encounter Summary ---
Author Organization [facility] Address [address] [place] [address] Care Team Providers Care Profile Saw Setup Operator Name Role Phone HolliRob APRN Primary Care Provider Reason for Visit * Reason Comments Med Refill Encounter Details Date Type Department Care Team (Late Contact Info) Description 10/26/2024 Refill [facility] [address], [address] [place] [address] Smita Lemons APRN, CNAda [address] [place] [address] Pain of left hip Social History Tobacco Use Types Packs/Day Years [...] 10:00 AM EDT Office Visit [facility] [address], [address] [place] [address] Smita Lemons APRN, CNM [address] [phone] documented as of this encounter Visit Diagnoses Diagnosis Pain of left hip documented in this encounter Additional Health Concerns Assessment Noted Time A Body Mass Index follow-up plan has been documented for the patient 09/28/2024 2:57 PM EDT documented as of this encounter Care Teams Profile Saw Setup Operator Relationship Specialty Start Date End Date Rob De La Garza APRN PCP - General 10/27/20 documented as of this encounter
--- OUTSIDE RECORDS SUMMARY | 2024-11-22 14:01 | XMS_ITS | Encounter Summary ---
Author Organization [facility] Address [address] [place] [address] Care Team Providers Care Top Precipitator Operator Name Role Phone Rob De La Garza APRN Primary Care Provider Encounter Details Date Type Department Care Team (Latest Contact Info) Description 09/28/2024 Travel Social History Tobacco Use Types Packs/Day Years [...] 10:00 AM EDT Office Visit [facility] [address], [address] [place] [address] Smita Lemons APRN, CNM [address] [place] [address] documented as of this encounter Visit Diagnoses Not on filedocumented in this encounter Additional Health Concerns Assessment Noted Time A Body Mass Index follow-up plan has been documented for the patient 09/28/2024 2:57 PM EDT documented as of this encounter Care Teams Top Precipitator Operator Relationship Specialty Start Date End Date Rob De La Garza APRN PCP - General 10/27/20 documented as of this encounter
--- OUTSIDE RECORDS SUMMARY | 2024-11-22 14:01 | XMS_ITS | Encounter Summary ---
Author Organization [facility] Address [address] [place] [address] Care Team Providers Care Automated Access Systems Technician Name Role Phone Rob De La Garza Nia MUNSON Primary Care Provider Encounter Details Date Type Department Care Team (Late Contact Info) Description 09/08/2024 Telephone [facility] [address], [address] [place] [address] Thais Chacko APRN, CNM [address] [place] [address] Social History Tobacco Use Types [...] 10:00 AM EDT Office Visit [facility] [address], [address] [place] [address] Smita Leomns APRN, CNM [address] [place] [address] documented as of this encounter Visit Diagnoses Not on filedocumented in this encounter Additional Health Concerns Assessment Noted Time A Body Mass Index follow-up plan has been documented for the patient 08/24/2024 1:45 PM EDT documented as of this encounter Care Teams Automated Access Systems Technician Relationship Specialty Start Date End Date Rob De La Garza APRN PCP - General 10/27/20 documented as of this encounter
--- NOTE | 2024-11-22 15:00 | MR_ITS ---
FINAL REPORT TECHNIQUE: Multiplanar MR imaging of the pelvis was obtained with and without contrast. CLINICAL HISTORY: Sacral pain and lower back pain FINDINGS: SI joints are intact. There is minimal edema in the posterior right iliac wing, adjacent to the SI joint. This is best seen on image 12 of series 7. Femoral heads have a normal smooth contour. Hip joint spaces are preserved. IMPRESSION: Minimal edema in the posterior right iliac wing adjacent to the SI joint. No fracture identified. Reviewed, Interpreted and Dictated by Twin Leyva MD Transcribed by Rachel Cheatham Authenticated and [facility]
[2024-11-22] MEDS: GADOTERIDOL INJ 20ML SYRINGE 10 ML IV (15:31)
[2024-11-22] MEDS: SODIUM CHLORIDE 0.9% 10ML SYR (RAD ONLY) 10 ML IV (15:32)
== END 2024-11-22 23:59 | disposition home or self-care (01) ==
LOC: RAD 13:58
PROVIDERS: PCP Nurse Practitioner Family; Visit Provider Nurse Practitioner Family
DX: M51.26 Other intervertebral disc displacement, lumbar region (principal); M48.061 Spinal stenosis, lumbar region without neurogenic claudication; M53.3 Sacrococcygeal disorders, not elsewhere classified; R60.0 Localized edema
CPT/HCPCS: 72158; 72197; A9576

== ENCOUNTER 2024-11-26 08:36 | Outpatient (CLI) | payer BC, SELFPAY ==
--- OUTSIDE RECORDS SUMMARY | 2024-09-28 09:11 | XMS_ITS | Encounter Summary ---
Author Organization Healthcare Address [address] [place] [address] Care Team Providers Care Production Line Operator Name Role Phone Rob De La Garza APRN Primary Care Provider Encounter Details Date Type Department Care Team (Latest Contact Info) Description 09/28/2024 9:11 AM EDT - 09/28/2024 11:59 PM EDT Hospital Encounter [facility] Radha ROG[facility] Ultrasound [address] [place] [address] Post-menopausal bleeding Discharge Disposition: Home or Self [...] 10:00 AM EDT Office Visit [facility] [address] [place] [address] Smita Lemons, EXPLOSIVE OPERATOR SUPERVISOR, CNM [address] [place] [address] documented as of this encounter [...] Please navigate to the Imaging tab in [employer] for review. This message has been generated by the interface. Narrative Procedure Note Jared Lima MD - 09/29/2024 IMPRESSION: The OB Ultrasound you requested has been resulted. Please navigate to theImaging tab in [employer] for review. This message has been generated [...] documented as of this encounter Care Teams Production Line Operator Relationship Specialty Start Date End Date Rob De La Garza APRN PCP - General 10/27/20 documented as of this encounter
--- OUTSIDE RECORDS SUMMARY | 2024-09-28 09:45 | XMS_ITS | Encounter Summary ---
Author Organization Healthcare Address [address] [place] [address] Care Team Providers Care Neon Sign Erector Name Role Phone Rob De La Garza APRN Primary Care Provider Encounter Details Date Type Department Care Team (Late st Contact Info) Description 09/28/2024 9:45 AM EDT Office Visit [facility] [address], [address] [place] [address] Smita Lemons APRN, CNM [address] [place] [address] Pain of left hip (Primary [...] take the pill. -Er visit on Friday [facility] . Extreme tail bone pain. Recommended to [...] take the pill. -Er visit on Friday [facility] . Extreme tail bone pain. Recommended to [...] 10:00 AM EDT Office Visit [facility] [address], [address] [place] [address] Smita Lemons APRN, CNM [address] [place] [address] Scheduled Orders Name Type Priority Associated Diagnoses [...] documented as of this encounter Care Teams Neon Sign Erector Relationship Specialty Start Date End Date Rob De La Garza APRN PCP - General 10/27/20 documented as of this encounter
--- OUTSIDE RECORDS SUMMARY | 2024-11-26 08:39 | XMS_ITS | Clinical Summary ---
Author Organization [facility] Address [address] [place], [place] [id number] Care Team Providers Care Cinder Man Name Role Phone Unavailable Primary Care Provider [...]
--- OUTSIDE RECORDS SUMMARY | 2024-11-26 08:39 | XMS_ITS | Data Portability ---
Author Organization [place] [facility] [place] Address [address] [place] [address] Care Team Providers Care Film Writer Name Role Phone UNRULYJIMBO CRESPO Primary Care Provider Assessment No assessment recorded. Plan of Treatment Reminders Order Date Submit Date Provider Last Modified By Organization Details Last Modified Time Details Appointments None recorded. Lab influenza virus A + B + SARS-CoV-2 (COVID19) Ag panel, rapid IA, upper respiratory specimen [address] [facility], [address] [place], [address], 4 12:09:11 CBC w/ diff 2022 023 [facility], [address], [address], [place], [address], 3 16:13:58 CMP, serum or plasma 2022 023 [facility], [address], [address], [place], [address], 3 16:14:00 TSH + free T4, serum 2022 023 [facility], [address], [address], [place], [address], 3 16:14:01 rf (rheumatoid factor) + anti-ccp abs, serum 2022 023 [facility], [address], [address], [place], [address], 3 16:14:03 ESR (erythrocyt e sedimentati on rate), blood 2022 023 [facility], [address], [address], [place], [address], 3 16:14:07 uric acid, serum or plasma 2022 023 [facility], [address], [address], [place], [address], 3 16:14:06 C reactive protein, QN, serum or plasma 2022 023 [facility], [address], [address], [place], [address], 3 16:14:08 MONA (antinuclea r antibodies) screen, serum 2022 023 [facility], [address], [address], [place], [address], 3 16:14:[address] referral 2022 023 [facility], [address], [address], [place], [address], 3 12:12:43 Procedures None recorded. Surgeries None recorded. Imaging XR, hip, unilateral, 2 or 3 view 2021 022 [facility], [address] [place], [address], 2 12:06:23 XR, femur, 2 or more view [address] Central[facility] Sched[facility], [address] [place], [address], 2 12:39:14 Medication Orders Paxlovid 300 mg (150 mg x 2)-100 mg tablets in a dose pack 2023 024 [facility], [address] [place] [address], [address], 4 12:19:54 Wellbutrin SR 100 mg tablet, 12 hr sustained-r elease 2022 023 [facility], [address] [place] [address], [address], 4 11:52:41 baclofen 5 mg tablet 2021 023 [facility], [address] [place] [address], [address], 3 09:16:41 Patient TargetsNo targets recorded. Patient InstructionsNo instructions recorded. Reason for Referral Manager Bilingual Referral for Cassandra coronel in skin lesion Referring Physician: Jimbo Olivas, Family Medicine, Encounter Date: 08/21/2022 Results Created Date Observation Date Name Description Value Unit Range Abnormal Flag Note LastModifiedBy Organization Detail LastModifiedTime 08/22/1908/22/2022 CBC/D /PLT WBC 6.1 x10e3 /uL 3.4-10 .8 Not Available [facility] ([facility]) [address] [place], [address], 08/22/2022 16:13:58 08/22/1908/22/2022 CBC/D /PLT RBC 4.40 x10e6 /uL 3.77-5 .28 Not Available [facility] ([facility]) [address] [place], [address], 08/22/2022 16:13:58 08/22/19 23 08/22/2022 CBC/D /PLT hemoglobin 14.2 g/dL 11.1-1 5.9 Not Available [facility] ([facility]) [address] [place], [address], 08/22/2022 16:13:58 08/22/19 23 08/22/2022 CBC/D /PLT hematocrit 41.5 % 34.0-4 6.6 Not Available [facility] ([facility]) [address] [place], [address], 08/22/2022 16:13:58 08/22/19 23 08/22/2022 CBC/D /PLT MCV 94 fL 79-97 Not Available [facility] ([facility]) [address] [place], [address], 08/22/2022 16:13:58 08/22/19 23 08/22/2022 CBC/D /PLT MCH 32.3 pg 26.6-3 3.0 Not Available [facility] ([facility]) [address] [place], [address], 08/22/2022 16:13:58 08/22/19 23 08/22/2022 CBC/D /PLT MCHC 34.2 g/dL 31.5-3 5.7 Not Available [facility] ([facility]) [address] [place], [address], 08/22/2022 16:13:58 08/22/19 23 08/22/2022 CBC/D /PLT RDW 12.5 % 11.7-1 5.4 Not Available [facility] ([facility]) [address] [place], [address], 08/22/2022 16:13:58 08/22/19 23 08/22/2022 CBC/D /PLT platelets 300 x10e3 /uL 150-45 0 Not Available [facility] ([facility]) [address] [place], [address], 08/22/2022 16:13:58 08/22/19 23 08/22/2022 CBC/D /PLT neutrophils 45 % not estab. Not Available [facility] ([facility]) [address] [place], [address], 08/22/2022 16:13:58 08/22/19 23 08/22/2022 CBC/D /PLT lymphs 44 % not estab. Not Available [facility] ([facility] [address] [place], [address], 08/22/2022 16:13:58 08/22/19 23 08/22/2022 CBC/D /PLT monocytes 7 % not estab. Not Available [facility] ([facility] [address] [place], [address], 08/22/2022 16:13:58 08/22/19 23 08/22/2022 CBC/D /PLT eos 3 % not estab. Not Available [facility] ([facility] [address] [facility], [place], [address], 08/22/2022 16:13:58 08/22/19 23 08/22/2022 CBC/D /PLT basos 1 % not estab. Not Available [facility] ([facility] [address] [facility], [place], [address], 08/22/2022 16:13:58 08/22/19 23 08/22/2022 CBC/D /PLT immature cells MEAT APPRENTICE Not Available [facility] [address] [facility], [place], [address], 08/22/2022 16:13:58 08/22/19 23 08/22/2022 CBC/D /PLT neutrophils (absolute) 2.8 x10e3 /uL 1.4-7. 0 Not Available [facility] [address] [place], [address], 08/22/2022 16:13:58 08/22/19 23 08/22/2022 CBC/D /PLT lymphs (absolute) 2.7 x10e3 /uL 0.7-3. 1 Not Available [facility] ([facility] [address] [facility], [place], [address], 08/22/2022 16:13:58 08/22/19 23 08/22/2022 CBC/D /PLT monocytes(ab solute) 0.4 x10e3 /uL 0.1-0. 9 Not Available [facility] ([facility] [address] [facility], [place], [address], 08/22/2022 16:13:58 08/22/19 23 08/22/2022 CBC/D /PLT eos (absolute) 0.2 x10e3 /uL 0.0-0. 4 Not Available [facility] ([facility] [address] [facility], [place], [address], 08/22/2022 16:13:58 08/22/19 23 08/22/2022 CBC/D /PLT baso (absolute) 0.1 x10e3 /uL 0.0-0. 2 Not Available [facility] ([facility] [address] [facility], [place], [address], 08/22/2022 16:13:58 08/22/19 23 08/22/2022 CBC/D /PLT immature granulocytes 0 % not estab. Not Available [facility] [address] [place], [address], 08/22/2022 16:13:58 08/22/19 23 08/22/2022 CBC/D /PLT immature grans (abs) 0.0 x10e3 /uL 0.0-0. 1 Not Available [facility] ([facility] [address] [place], [address], 08/22/2022 16:13:58 08/22/19 23 08/22/2022 CBC/D /PLT NRBC MEAT APPRENTICE Not Available [facility] ([facility]) [address] [place], [address], 08/22/2022 16:13:58 08/22/19 23 08/22/2022 CBC/D /PLT hematology comments: MEAT APPRENTICE Not Available [facility] [address] [place], [address], 08/22/2022 16:13:58 08/22/19 23 08/22/2022 CMP14 +EGFR glucose 98 mg/dL 70-99 Not Available [facility]) [address] [place], [address], 08/22/2022 16:14:00 08/22/19 23 08/22/2022 CMP14 +EGFR BUN 11 mg/dL 6-24 Not Available [facility] [address] [place], [address], 08/22/2022 16:14:00 08/22/19 23 08/22/2022 CMP14 +EGFR creatinine 0.69 mg/dL 0.57-1 .00 Not Available [facility] ([facility] [address] [place], [address], 08/22/2022 16:14:00 08/22/19 23 08/22/2022 CMP14 +EGFR eGFR 107 mL/mi n/1.7 3 >59 Not Available [facility] ([facility] [address] [place], [address], 08/22/2022 16:14:00 08/22/19 23 08/22/2022 CMP14 +EGFR BUN/creatini ne ratio 16 9-23 Not Available [facility] [address] [place], [address], 08/22/2022 16:14:00 08/22/19 23 08/22/2022 CMP14 +EGFR sodium 142 mmol/ L 134-14 4 Not Available [facility] ([facility] [address] [facility], [place], [address], 08/22/2022 16:14:00 08/22/19 23 08/22/2022 CMP14 +EGFR potassium 4.5 mmol/ L 3.5-5. 2 Not Available [facility] ([facility] [address] [place], [address], 08/22/2022 16:14:00 08/22/19 23 08/22/2022 CMP14 +EGFR chloride 105 mmol/ L 96-106 Not Available [facility] [address] [place], [address], 08/22/2022 16:14:00 08/22/19 23 08/22/2022 CMP14 +EGFR carbon dioxide, total 18 mmol/ L 20-29 below low normal Not Available [facility] [address] [place], [address], 08/22/2022 16:14:00 08/22/19 23 08/22/2022 CMP14 +EGFR calcium 9.7 mg/dL 8.7-10 .2 Not Available [facility] [address] [place], [address], 08/22/2022 16:14:00 08/22/19 23 08/22/2022 CMP14 +EGFR protein, total 7.1 g/dL 6.0-8. 5 Not Available [facility] ([facility] [address] [place], [address], 08/22/2022 16:14:00 08/22/19 23 08/22/2022 CMP14 +EGFR albumin 4.8 g/dL 3.8-4. 8 Not Available [facility] [address] [place], [address], 08/22/2022 16:14:00 08/22/19 23 08/22/2022 CMP14 +EGFR globulin, total 2.3 g/dL 1.5-4. 5 Not Available [facility] ([facility]) [address] [place], [address], 08/22/2022 16:14:00 08/22/19 23 08/22/2022 CMP14 +EGFR A/G ratio 2.1 1.2-2. 2 Not Available [facility] ([facility] [address] [place], [address], 08/22/2022 16:14:00 08/22/19 23 08/22/2022 CMP14 +EGFR bilirubin, total 0.2 mg/dL 0.0-1. 2 Not Available [facility] ([facility] [address] [facility], [place], [address], 08/22/2022 16:14:00 08/22/19 23 08/22/2022 CMP14 +EGFR alkaline phosphatase 78 IU/L 44-121 Not Available [facility] [address] [place], [address], 08/22/2022 16:14:00 08/22/19 23 08/22/2022 CMP14 +EGFR AST (SGOT) 13 IU/L 0-40 Not Available [facility] [address] [place], [address], 08/22/2022 16:14:00 08/22/19 23 08/22/2022 CMP14 +EGFR ALT (SGPT) 9 IU/L 0-32 Not Available [facility] [address] [facility], [place], [address], 08/22/2022 16:14:00 08/22/19 23 08/22/2022 TSH+F REE T4 TSH 0.837 uIU/m L 0.450- 4.500 Not Available [facility] ([facility]) [address] [place], [address], 08/22/2022 16:14:01 08/22/19 23 08/22/2022 TSH+F REE T4 T4,free(dire ct) 1.23 NG/dL 0.82-1 .77 Not Available [facility] ([facility] [address] [place], [address], 08/22/2022 16:14:01 08/22/19 23 08/22/2022 RHEUM ATOID ARTHR ITIS PROFI LE rheumatoid factor (rf) <10.0 IU/mL <14.0 Not Available [facility] [address] [place], [address], 08/22/2022 16:14:03 08/22/19 23 08/22/2022 RHEUM ATOID ARTHR ITIS PROFI LE anti-ccp Ab, IgG/IgA 2 units 0-19 Negat madison <20 Weak posit madison 20 - 39 Moder ate posit madison 40 - 59 Stron g posit madison >59 Not Available [facility] ([facility]) [address] [facility], [place], [address], 08/22/2022 16:14:03 08/22/19 23 08/22/2022 MONA W/REF TATO MONA direct NEGATI VE negati ve Not Available [facility] ([facility]) [address] [place], [address], 08/22/2022 16:14:04 08/22/19 23 08/22/2022 URIC ACID uric acid 2.9 mg/dL 2.6-6. 2 Thera peuti c targe t for gout patie nts: <6.0 Not Available [facility] ([facility]) [address] [place], [address], 08/22/2022 16:14:06 08/22/19 23 08/22/2022 SEDIM ENTAT ION RATE- WESTE RGREN sedimentatio n rate-westerg dinorah 2 mm/HR 0-32 Not Available [facility] [address] [facility], [place], [address], 08/22/2022 16:14:07 08/22/19 23 08/22/2022 C-LLOYD CTIVE PROTE IN, QUANT C-reactive protein, quant <1 mg/L 0-10 Not Available [facility] [address] [facility], [place], [address], 08/22/2022 16:14:08 02/25/20 24 02/25/2024 influ emmanuel virus A + B + SARS- CoV-2 (COVI D19) Ag panel , rapid IA, upper respi rator y speci men FLU A negati ve Not Available [address] [place], [address], 02/25/2024 11:54:02 02/25/20 24 02/25/2024 influ emmanuel virus A + B + SARS- CoV-2 (COVI D19) Ag panel , rapid IA, upper respi rator y speci men FLU B negati ve Not Available [place] [address] [place], [address], 02/25/2024 11:54:02 02/25/20 24 02/25/2024 influ emmanuel virus A + B + SARS- CoV-2 (COVI D19) Ag panel , rapid IA, upper respi rator y speci men SARS COV + SARS OV 2 positi ve Not Available [place] [address] [place], [address], 02/25/2024 11:54:02 03/21/20 22 03/21/2022 XR, hip, unila teral , 2 or 3 view [facility] [address] [place] [address] Phone: Fax: Name: JADYN PHELAN Exam Date: 022 : 9[birth year] Age 47 Gender : F Access ion: [id number] Physic david: JIMBO OLIVAS Facili ty: [facility] Facili ty HSV: Outpat ient [...] for referr ing JADYN PHELAN ER to [facility] Hospit al. Legall y authen ticate d by CARYN LANDIN 2021-06 12:02: 12 CC'ed Logic: Orderi ng Provid er: UNRULY CHOI CC Provid er: UNRULY CHOI Attend ing Provid er: UNRULY CHOI Referr ing Provid er: UNRULY CHOI Admitt ing Provid er: UNRULY CHOI [email or web address] [facility] (Radiology) [address] [place], [address], 03/21/2022 13:13:33 03/21/20 22 03/21/2022 femur 2V lt [facility] [address] [place] [address] Phone: Fax: Name: JADYN PHELAN ER Exam Date: : 9[birth year] Age 47 Gender : F Access ion: [id number] Physic david: UNRULYERICKEN Facili ty: [facility] Facili ty HSV: Outpat ient Exam: [...] [facility] authen ticate d by CARYN LANDIN 2021-06 12:02: 33 CC'ed Logic: Orderi ng Provid er: UNRULY CHOI CC Provid er: UNRULY CHOI Attend ing Provid er: UNRULY CHOI Referr ing Provid er: UNRULY CHOI Admitt ing Provid er: UNRULY CHOI [facility] (Radiology) [address] , [place], [address], 03/21/2022 13:13:15 Result Notes None recorded. Problems Name Problem SNOMED Code Status Onset Date Resolution Date Notes Provider Name and Address Organization Details Recorded Time Menopause Active 2021 Carlie Edward null, [place] - [facility] [place] [facility] [place] 4 11:52:56 Gastroesophage al reflux disease 305506130 Active 2021 Carlie Jacintodini null, [place] [facility] [place] [facility] [place] 4 11:52:54 Seasonal allergy 026971877 Active 2021 Carlie Jacintodini null, [place] [facility] [place] [facility] [place] 4 11:52:59 Problem Notes None recorded. Procedures Surgical History Date Name Laterality Status Provider Name and Address Organization Details Recorded Time 2021 completed Martha Nolan [place] - [facility] [place] [facility] [place] 3 09:16:15 2021 Date of Last Colonoscopy completed Martha JACKSON - [facility] [place] [facility] [place] 3 09:16:15 2020 Date of Last Pap Smear completed Martha JACKSON - [facility] [place] [facility] [place] 3 09:16:15 Cholecystectomy completed Guillermina JACKSON - [facility] [place] [facility] [place] 2 08:10:49 Tubal Ligation completed Guillermina JACKSON - [facility] [place] [facility] [place] 2 08:11:04 esophagogastroduodenoscopy completed Guillermina JACKSON - [place] - [place] [facility] [place] 2 08:11:15 esophagogastroduodenoscopy completed Guillermina JACKSON - JANES [place] [facility] [place] 2 08:11:24 colonoscopy completed Guillermina JACKSON - JANES [place] [facility] [place] 2 08:11:38 colonoscopy completed Guillermina JACKSON - [place] - [place] [facility] [place] 2 08:11:54 Imaging Results None recorded. Procedure [...] Details Last Updated DateTime 3 160.02 cm 05566.9 1 g 97 [degF] 98 % 98 % 74 /min 117 mm[Hg] 62 mm[Hg] Martha Nolan [facility] & [place] 3 09:15:52 Date Recorded Body height Body mass index (BMI) Body weight Body temperature Oxygen saturation Oxygen saturation in Arterial blood by Pulse oximetry Heart rate Respiratory rate Systolic blood pressure Diastolic blood pressure Provider Name and Address Organization Details Last Updated DateTime 4 160.02 cm 19.4 kg/m2 55740.0 1 g 98.2 [degF] 94 % 94 % 83 /min 16 /min 109 mm[Hg] 64 mm[Hg] Carlie Hernandezserena [facility] & [place] 4 11:52:01 Date Recorded Body height Body mass index (BMI) Body weight Body temperature Oxygen saturation Oxygen saturation in Arterial blood by Pulse oximetry Heart rate Systolic blood pressure Diastolic blood pressure Provider Name and Address Organization Details Last Updated DateTime 2 160.02 cm 19 kg/m2 19997.1 g 98 [degF] 97 % 97 % 68 /min 104 mm[Hg] 64 mm[Hg] Martha MARRERO [place] [facility] [place] 10:35:40 Social History Question Answer Notes LastModified by Organizat ion Details LastModified Time Tobacco Smoking Status Current Every Day Smoker Martha bunch, [place] MARRERO [place] [facility] [place] 03/21/2022 10:36:35 Do You Have An Advance [...] anxious, or unable to sleep at night)? SN4162-7 Information not available 02/25/2024 Family History Relationship Description Onset Age of this Age Resolved Age Notes LastModified by Organization Details LastModified Time Mother Malignant neoplasm of liver deceas ed [email or web address] Not available 03/21/2022 08:09:44 Sister Alcoholism deceas ed [email or web address] Not available 03/21/2022 08:10:09 Notes:Father Medical History Condition Response Liver Disease Y Allergies/Hayfever Y GI Problems Y Substance Abuse Y Reflux/GERD Y Gynecological History Statement/Question Response Abnormal Pap [...] SNOMED-CT Code Diagnosis ICD10 Code Diagnosis Note [id number] Jimbo Olivas APRN [address] [address] 03/21/2022 10:20:58 03/21/2022 11:14:48 Pain in left lower limb 225801030 M79.605 xrays orderedwil l order baclofenmo nitor for worsening symptomsic e therapygo to the ER with any loss of sensation, tingling/n umbness, severe weakness [id number] Jimbo Olivas APRN [address] [address] 08/21/2022 09:03:45 08/21/2022 16:53:20 Pain of multiple joints 08429936 M25.50 blood drawn in the right ac by Martha Nolan CMA, patient tolerated well.OA vs RA vs autoimmune Nicotine dependence 5629 4008 F17.200 start wellbutrin start to decrease daily cigarette use Change in skin lesion 39 8072146 L98.9 sending referral to derm [id number] Mohinder Vargas MD [facility] [address] [facility] [address] [address] 02/25/2024 11:36:13 02/25/2024 12:10:07 Respiratory tract congestion and cough 742284296 R05.1 COVID-19 [id number] U07.1 patient tested positive for COVID-19 infection. [...] ID Guarantor Name 08/20/2022 1 PASSPORT BY [employer] (MEDICAID REPLACEMENT - HMO) [id number] Guillermina Phelan [id number] Guillermina Phelan 08/20/2022 1 [place] - [place] CHOICES - FFS/TRADITION AL Guillermina Phelan [id number] Guillermina Phelan 02/25/2024 1 PASSPORT BY [employer] [facility] (MEDICAID REPLACEMENT - HMO) [id number] Guillermina Phelan [id number] Guillermina Phelan 02/25/2024 1 [place]) [id number] Guillermina [place]an [id number] Guillermina Phelan Notes Date Note Type Note [...] mopping Jimbo Olivas APRN [address], [place], [address] 03/22/2022 14:08:21 08/21/2022 text/html 47 y/o female th at presents to the clinic for multiple joint pain. Reports worst pain is in BL hips, BL wrists and ankles. Has been present for several months. 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 No known RA or autoimmune in family members. Has a left posterior back lesion, itching and painful to touch.Pt is also smoking 1 ppd and wanting to quit. Requesting possible wellbutrin to aid in tobacco cessation. She has stopped hormone replacement. Jimbo Olivas APRN [address] [facility] [address], [place], [address], [place] [facility] [place] [facility] [place] 08/21/2022 12:45:09 02/25/2024 text/html patient presents today with symptoms that include body aches, fever, chills, sore throat, and fatigue. Patient has had symptoms for 2 days. Mohinder Vargas MD [address] [facility] [address], [place], [address], [place] [facility] [place] [facility] [place] 02/25/2024 12:20:06 OBGyn Episode No OBEpisode recorded.
--- OUTSIDE RECORDS SUMMARY | 2024-11-26 08:39 | XMS_ITS | Encounter Summary ---
Author Organization [facility] Address [address] [place] [address] Care Team Providers Care Compliance Manager Name Role Phone Rob De La Garza [...] 10:00 AM EDT Office Visit [facility] [address], [address] [place] [address] Smita Lemons APRN, CNM [address] [place] [address] documented as of this encounter Visit Diagnoses Not on filedocumented in this encounter Additional Health Concerns Assessment Noted Time A Body Mass Index follow-up plan has been documented for the patient 09/28/2024 2:57 PM EDT documented as of this encounter Care Teams Compliance Manager Relationship Specialty Start Date End Date Rob De La Garza APRN PCP - General 10/27/20 documented as of this encounter
--- OUTSIDE RECORDS SUMMARY | 2024-11-26 08:39 | XMS_ITS | Encounter Summary ---
Author Organization [facility] Address [address] [place] [address] Care Team Providers Care Paint Coating Machine Operator Name Role Phone Rob De La Garza Nia MUNSON Primary Care Provider Encounter Details Date Type Department Care Team (Late st Contact Info) Description 08/25/2024 Results Follow-Up [facility] [address], [address] [place] [address] Smita Lemons APRN, CNAda [address] [place] [address] Social History Tobacco Use Types [...] 10:00 AM EDT Office Visit [facility] [address], [address] [place] [address] Smita Lemons APRN, CNM [address] [place] [address] documented as of this encounter Visit Diagnoses Not on filedocumented in this encounter Additional Health Concerns Assessment Noted Time A Body Mass Index follow-up plan has been documented for the patient 08/24/2024 1:45 PM EDT documented as of this encounter Care Teams Paint Coating Machine Operator Relationship Specialty Start Date End Date Rob De La Garza APRN PCP - General 10/27/20 documented as of this encounter
--- OUTSIDE RECORDS SUMMARY | 2024-11-26 08:39 | XMS_ITS | Referral Summary ---
Author Organization [facility] Address [address] [place], [place] [address] Care Team Providers Care Senior Network Systems Engineer Name Role Phone Unavailable Primary Care Provider [...]
--- OUTSIDE RECORDS SUMMARY | 2024-11-26 08:39 | XMS_ITS | Encounter Summary ---
Author Organization [facility] Address [address] [place] [address] Care Team Providers Care Presser And Shaper Knitted Goods Name Role Phone HolliRob APRN Primary Care Provider Reason for Visit * Reason Comments Med Refill Encounter Details Date Type Department Care Team (Late Contact Info) Description 08/17/2021 Refill [facility] [address], [address] [place] [address] Rose Zamudio APRN, CNM [address] [place] [address] Healthcare maintenance; Perimenopause Social History [...] 10:00 AM EDT Office Visit [facility] [address], [address] [place] [address] Smita Lemons APRN, CNM [address] [place] [address] documented as of this encounter Visit Diagnoses Diagnosis Healthcare maintenance Perimenopause Symptomatic menopausal or female climacteric states documented in this encounter Care Teams Presser And Shaper Knitted Goods Relationship Specialty Start Date End Date Rob De La Garza APRN PCP - General 10/27/20 documented as of this encounter
--- OUTSIDE RECORDS SUMMARY | 2024-11-26 08:39 | XMS_ITS | Clinical Summary ---
Author Organization Healthcare Address [address] [place] [address] Care Team Providers Care Target Aircraft Technician Name Role Phone Rob De La Garza APRN Primary Care Provider Allergies No known active allergies Medications pantoprazole (Protonix) 40 MG EC tablet Take 40 mg by mouth 2 (two) times a day. 2 Active estradiol (Estrace) 2 MG tabletIndicatio ns:Healthcare maintenance,Per imenopause TAKE 1 TABLET BY MOUTH ONCE DAILY DIRECTED 30 tablet 2 Active progesterone (Prometrium) 200 MG capsuleIndicati ons:Perimenopau se Take 1 capsule by mouth once daily 30 capsule 2 Active cetirizine (ZyrTEC) 10 MG tablet Take 1 tablet (10 mg) by mouth 1 (one) time each day. Active fluticasone (Flonase) 50 MCG/ACT nasal spray Administer 2 sprays into affected nostril(s) 1 (one) time each day. Active famotidine (Pepcid) 20 MG tablet Take by mouth. Activ e estradiol (Vivelle-DOT) 0.05 MG/24HRIndicati ons:Post-menopa usal bleeding Place 1 patch on the skin 2 (two) times a week over 96 hours. 24 patch 3 5 Active progesterone (Prometrium) 200 MG capsuleIndicati ons:Post-menopa usal bleeding Take 1 capsule (200 mg) by mouth nightly. 90 capsule 3 5 Active estradiol (Estrace) 0.1 MG/GM vaginal creamIndication s:Pelvic and perineal pain Insert 1 g into the vagina nightly. At bedtime for 2 weeks, then at bedtime twice a week. 42 g 3 5 Active cyclobenzaprine (Flexeril) 10 MG tabletIndicatio ns:Tail bone pain Take 1 tablet by mouth in the morning and 1 tablet in the evening and 1 tablet before bedtime. 30 tablet 1 5 Active diclofenac (Voltaren) 1 % topical gelIndications: Pain of left hip Place on the skin in the morning and before bedtime. Apply as directed to L HIP NEEDED FOR PAIN. 350 g 5 Active diclofenac (Voltaren) 75 MG EC tabletIndicatio ns:Pain of left hip TAKE 1 TABLET BY MOUTH IN THE MORNING AND 1 TABLET AT BEDTIME DO NOT CRUSH, CHEW, OR SPLIT 60 tablet 5 Active Active Problems Problem Noted Date Diagnosed Date Tobacco use current 02/20/2021 Overview (03/18/2022): Regulatory Update March 2022 Assessment & Plan (02/20/2021 5:58 PM EDT): Smoking cessation counseling provided Not ready to quit, encouraged decreased use Health maintenance examination 02/20/2021 Encounters Date Type Department Care Team Description 10/26/2024 Refill [facility] [address], [address] [place] [address] Smita Lemons APRN, LORNAM Pain of left hip 09/28/2024 9:45 AM EDT Office Visit [facility] [address], [address] [place] [address] Smita Lemons APRN, CNM Pain of left hip (Primary Dx); Post-menopausal bleeding; Hormone replacement therapy 09/28/2024 9:11 AM EDT - 09/28/2024 11:59 PM EDT Hospital Encounter [facility] Radha ROGEL Ultrasound [address] [place] [address] Post-menopausal bleeding Discharge Disposition: Home or Self Care 09/28/2024 Travel 09/08/2024 Orders Only [facility] [address], [address] [place] [address] Smita Lemons APRN, CNM Tail bone pain (Primary Dx) 09/08/2024 Telephone [facility] [address], [address] [place] [address] Thais Chacko APRN, CNM from Last 3 Months Immunizations Immunization Administration [...] Description 08/30/2025 10:00 AM EDT Office Visit [facility] [address], [address] [place] [address] Smita Lemons, BUSINESS RULES DEVELOPER, CNM [address] [place] [address] Health Maintenance Due Date Last [...] 02/02/2024 [facility]-Zoster Vaccines (1 of 2) 02/02/2024 OPA-PUZYL-54 Vaccine ( - season) 2024 04/08/2021, 09/17/2020, 08/27/2020 [facility]-Pap Smear 02/21/2024 02/20/2021, 090 08/2019, 02/16/2019, Additional history exists [facility]-Influenza Vaccine (Season Ended) 2025 06/20/2023, 04/14/2017, 05/10/2016 [facility]-DTaP,Tdap,and Td Vaccines (2 - Td or Tdap) 04/28/2027 04/28/2017 [facility]-Cervical Cancer Screening 08/24/2029 [facility]-HPV/Cotest 08/24/2029 08/24/2024, 09/0 12/2020, 02/17/2020, Additional history exists [facility]-HIV Screening [...] TRANSVAGINAL Routine 9:23 AM EDT Post-menopausal bleeding REFERRED THINPREP PAP AND HPV (SO) Routine 08/24/2024 11:22 AM EDT Annual physical exam HEMOGLOBIN A1C Routine 08/24/2024 11:22 AM EDT Annual physical exam PAP TEST - CYTOLOGY Routine 02/20/2021 2 [...] Please navigate to the Imaging tab in [employer] for review. This message has been generated by the interface. Narrative Procedure Note Zachman, Jraed M, MD - 09/29/2024 IMPRESSION: The OB Ultrasound you requested has been resulted. Please navigate to theImaging tab in [employer] for review. This message has been generated by [email or web address]. us Smita Lemons BUSINESS RULES DEVELOPER, CNM IMG US PROCEDURES Fin al Result * Referred ThinPrep Pap and HPV (SO) (08/24/2024 11:22 AM EDT) Pap, Source Cx/Vaginal 09/02/2024 5:55 PM EDT [facility] ([employer] [facility]) EER Referred ThinPrep Pap and HPV See Note 09/02/2024 5:55 PM EDT [facility] ([employer] [facility]) PAP, THINPREP Normal 09/02/2024 5:55 PM EDT [facility] ([employer] [facility]) High Risk HPV Normal 09/02/2024 5:55 PM EDT [facility] ([employer] [facility]) Swab Cervix uteri structure / Unknown Non-blood Collection / Unknown 08/24/2024 11:22 AM EDT 08/24/2024 7:10 PM EDT Narrative [facility] ([employer]) - 09/02/2024 5:55 PM EDT Authorized individuals can access the [facility] Enhanced Report with an [facility] Connect account using the following link. Your local lab can assist you in obtaining the patient report if you don't have a Connect account. [email or web address] Performed By: [facility] [address] [place] [id number] Camera Maker: Swapnil Leon MD, PhD CLIA Number: [id number] SPECIMEN PART A. Cervical, Endocervical, Vaginal, ThinPrep Pap (Data Examination Clerk) CYTOLOGY HX Date of Last Menstrual Period: N FINAL DIAGNOSIS INTERPRETATION: Negative for Intraepithelial Lesion or Malignancy. SPECIMEN ADEQUACY:Satisfactory for evaluation. Endocervical/transformation zone component is absent/insufficient. Electronically Signed Out : Janelle Mckeon Performed by: [facility] [address] [place] [address] [place] [address] Riddhi Collado MD, HR-HPV: Negative Test performed by the FDA-approved [employer] Spine (Gen-Probe) APTIMA HPV test, which detects HPV genotypes: 16, 18, 31, 33, 35, 39, 45, 51, 52, 56, 58, 59, 66, and 68. This assay has been cleared for the specimen types listed below. Other specimen types have not been validated for this assay. -Clinician-collected ThinPrep Pap specimens. Performed by: [facility] Cole [address] [place] [address] [place] [address] Riddhi Collado MD, Smita Lemons APRN, CNM LAB REF LAB BLOOD AND FLUID ORD Final Result [facility] [address] [address] * Hemoglobin A1c (08/24/2024 11:22 AM EDT) Hemoglobin A1c 5.5 <5.7 % 08/24/2024 1:51 PM EDT [facility] Blood Venous blood specimen / Unknown Venipuncture / Unknown 08/24/2024 11:22 AM EDT 08/24/2024 1:08 PM EDT Narrative [facility] - 08/24/2024 1:51 PM EDT HA1C Interpretive Data: Diagnosis of Diabetes: Diabetic > or = 6.5% Pre-diabetic 5.7 to 6.4% Non-diabetic < or = 5.6% Glycemic Targets for Type I and Type II Diabetics: Non- Adults <7.0% Adults <6.0% Children and Adolescents <7.5% Source: [place] [employer]. Standards of medical care in diabetes,2017. Diabetes Care.2017:40 (suppl 1):S1-S135. HbA1c assay performed by an ion-exchange chromatography method that is certified traceable to the DCCT. Smita Daysi Lemons APRN, CNM LAB BLOOD ORDERABLES Final Result [facility] [address] [place] [address] * Pap Test (02/20/2021 2:27 PM EDT) Case Report Cytology Case: [id number] Authorizing Provider: Rose Zamudio CNM Collected: 02/20/2021 1427 Ordering Location: [facility] Received: 02/21/2021 1005 First Screen: SELAM Blas Specimen: ThinPrep Pap Test, Liquid-Based Cervical/Vaginal, CERVICAL/VAGINAL 02/26/2021 4:13 PM EDT [facility] Interpretation NEGATIVE FOR INTRAEPITHELIAL LESION OR MALIGNANCY 02/26/2021 4:13 PM EDT [facility] at 1613 EDT Specimen Adequacy Satisfactory for evaluation; endocervical/greene sformation zone component present. Slide scanned and imaged by [employer] [facility] with manual review of all selected olivera. 02/26/2021 4:13 PM EDT [facility] Cervical cytology is a screening test [...] results is suggested (please call Microbiology at [phone] for results). 02/26/2021 4:13 PM EDT [facility] Menstrual Status Post- 021 4:13 PM EDT [facility] Contraceptive History Not Applicable 02/26/2021 4:13 PM EDT [facility] Last Menstrual Period 02/20/2021 02/26/2021 4:13 PM EDT [facility] Comment:Unknown Screening Type Routine Screen 2020 4:13 PM EDT [facility] High Risk? No 02/26/2021 4:13 PM EDT [facility] HPV Testing Requested? Request HPV Testing Regardless of Pap Test Findings 02/26/2021 4:13 PM EDT [facility] Previous Cancer History No 02/26/2021 4:13 PM EDT [facility] Swab Vaginal and cervical cytologic material / Unknown 02/20/2021 2:27 PM EDT 02/21/2021 10:05 AM EDT Rose Zamudio APRN, CNM LAB CYTOLOGY ORDERAB LES Final Result [facility] [address] [place] [address] * Hepatitis C Antibody (02/17/2020 10:19 AM EDT) Hepatitis C Antibody POSITIVE This specimen is being sent for confirmation by PCR. Reference Range: Negative [facility] 02/17/2020 10:1 9 AM EDT 02/17/2020 11:52 AM EDT Thais Chacko APRN, CNM LAB BLOOD ORDERABLES F inal Result [facility] * HIV 1 & 2 Antibody/Antigen Screen (11/08/2014 4:53 PM EDT) HIV 1 Result NONREACTIVE Screening for HIV 1 and 2 antibodies is NONREACTIVE. No confirmatory testing is required. [facility] 11/08/2014 4:53 PM EDT 11/08/2014 5:45 PM EDT Historical Provider LAB BLOOD ORDERABLES Latanya l Result [facility] from Last 3 Months or Most Recently Relevant to Health Maintenance Insurance [employer] Care Teams Target Aircraft Technician Relationship Specialty Start Date End Date Rob De La Garza APRN PCP - General 10/27/20
--- OUTSIDE RECORDS SUMMARY | 2024-11-26 08:39 | XMS_ITS | Encounter Summary ---
Author Organization [facility] Address [address] [place] [address] Care Team Providers Care Social Psychologist Name Role Phone HolliRob APRN Primary Care Provider Reason for Visit * Reason Comments Med Refill Encounter Details Date Type Department Care Team (Late Contact Info) Description 10/26/2024 Refill [facility] [address], [address] [place] [address] Smita Lemons APRN, CNAda [address] [place] [address] Pain of left hip Social [...] 10:00 AM EDT Office Visit [facility] [address], [address] [place] [address] Smita Lemons APRN, CNM [address] [address] documented as of this encounter Visit Diagnoses Diagnosis Pain of left hip documented in this encounter Additional Health Concerns Assessment Noted Time A Body Mass Index follow-up plan has been documented for the patient 09/28/2024 2:57 PM EDT documented as of this encounter Care Teams Social Psychologist Relationship Specialty Start Date End Date Rob De La Garza APRN PCP - General 10/27/20 documented as of this encounter
--- OUTSIDE RECORDS SUMMARY | 2024-11-26 08:39 | XMS_ITS | Encounter Summary ---
Author Organization [facility] Address [address] [place] [address] Care Team Providers Care School Bus Mechanic Name Role Phone Rob De La Garza Nia MUNSON Primary Care Provider Encounter Details Date Type Department Care Team (Late Contact Info) Description 09/08/2024 Telephone [facility] [address], [address] [place] [address] Thais Chacko APRN, CNM [address] [place] [address] Social History Tobacco Use Types [...] 10:00 AM EDT Office Visit [facility] [address], [address] [place] [address] Smita Lemons APRN, CNM [address] [place] [address] documented as of this encounter Visit Diagnoses Not on filedocumented in this encounter Additional Health Concerns Assessment Noted Time A Body Mass Index follow-up plan has been documented for the patient 08/24/2024 1:45 PM EDT documented as of this encounter Care Teams School Bus Mechanic Relationship Specialty Start Date End Date Rob De La Garza APRN PCP - General 10/27/20 documented as of this encounter
--- NOTE | 2024-11-26 08:45 | CT_ITS ---
FINAL REPORT TECHNIQUE: Thin section axial images were obtained from the lung apices to the upper abdomen by computed tomography. Reformatted images were obtained and reviewed. This study was performed with techniques to keep radiation doses al low as reasonably achievable (ALARA). Individualized dose reduction techniques using automated exposure control or adjustment of mA and/or kV according to the patient's size were employed. CLINICAL HISTORY: lung cancer screening, smoker x 35 yrs. 2 packs per day. COMPARISON: None FINDINGS: CHEST CT LOW DOSE 49-year-old female, current smoker, [id number] history. CTDI vol (mGy): 2.90 DLP (mGy-cm): 108.93 There is no axillary adenopathy. Calcified precarinal and right hilar nodes are identified. The heart is normal in size. A calcified granuloma is noted in the right upper lobe. There is no pericardial or pleural effusion. There is mild emphysema and mild pulmonary scarring. Lung window images demonstrate no suspicious infiltrate or nodule. Limited images of the upper abdomen demonstrate prior cholecystectomy. IMPRESSION: Lung-RADS category 1. Recommend 12 month follow up low dose chest CT. Reviewed, Interpreted and Dictated by Twin Leyva MD Transcribed by Katerine Holman Authenticated and [facility]
== END 2024-11-26 23:59 | disposition home or self-care (01) ==
LOC: RAD 08:37
PROVIDERS: PCP Nurse Practitioner Family; Visit Provider Internal Medicine Medical Oncology
DX: Z12.2 Encounter for screening for malignant neoplasm of respiratory organs (principal); J84.10 Pulmonary fibrosis, unspecified; J98.4 Other disorders of lung; F17.210 Nicotine dependence, cigarettes, uncomplicated
CPT/HCPCS: 71271